=== PATIENT | female | born 1950 | race Caucasian/White ===

== ENCOUNTER 2016-08-07 15:05 | Emergency (ER) | payer OTHER, BC ==
[~2016-08-07] VITALS: Ht 157.5 cm; Wt 70.0 kg
[2016-08-07 15:07] VITALS: Ht 157.5 cm; Wt 70.0 kg
[2016-08-07 15:24] VITALS: TEMP 36.9
[2016-08-07 15:25] VITALS: O2SAT 97
[2016-08-07] MEDS ORDERED: SODIUM CHLORIDE 0.9% 1000ML 1,000 ML IV STA (15:27)
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
[2016-08-07] MEDS ORDERED: OMEP20CA59 PO (15:44)
[2016-08-07] MEDS ORDERED: LSN5 PO (15:44)
[2016-08-07] MEDS ORDERED: ATOR10TA88 PO (15:44)
[2016-08-07] MEDS ORDERED: GARC1TAB PO (15:44)
[2016-08-07] MEDS ORDERED: IBUP-103 PO (15:44)
[2016-08-07] MEDS ORDERED: FAMO20TA11 PO (15:44)
[2016-08-07] MEDS ORDERED: MULT-1027 PO (15:44)
[2016-08-07] MEDS ORDERED: OPTIRAY 320 IV PRN (15:45)
[2016-08-07 15:46] LABS: BASO % 0.2 %; BASO ABS # 0.02 K/uL (0-0.2); COMPLETE YES; EOS % 0.9 %; HEMATOCRIT 40.5 % (37-47); IG% 0.4 %; LYMPH % 24.4 %; LYMPH ABS # 2.73 K/uL (1.2-3.4); MEAN CELL VOLUME 90.4 fL (80-100); MEAN CORPUSCULAR HEMOGLOBIN 31.5 pg (25-34); MEAN CORPUSCULAR HGB CONC 34.8 g/dl (32-36); MEAN PLATELET VOLUME 10.4 fL (7.4-10.4); MONO % 7.3 %; NEUT % 66.8 %; PLATELET COUNT 185 K/uL (130-400); RED BLOOD COUNT 4.48 M/uL (4.2-5.4); WHITE BLOOD COUNT 11.17 K/uL (4.8-10.8)
[2016-08-07 16:13] LABS: ALT/SGPT 39 U/L (12-78); AST/SGOT 32 U/L (15-37); BLOOD UREA NITROGEN 17 mg/dl (7-18); BUN/CREATININE RATIO 19.1 (10-20); CALCIUM 8.7 mg/dl (8.5-10.1); CARBON DIOXIDE 28 mmol/L (21-32); CHLORIDE 107 mmol/L (98-107); CREATININE 0.91 mg/dl (0.60-1.20); GLUCOSE 103 mg/dl (70-99); POTASSIUM 3.5 mmol/L (3.5-5.1); SODIUM 142 mmol/L (136-145)
[2016-08-07 16:18] LABS: ALKALINE PHOSPHATASE 74 U/L (45-117); CKMB/CK RATIO 1.2 (0-3.0)
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
[2016-08-07 17:30] LABS: ISTAT CREATININE 0.8 mg/dl (0.6-1.3); ISTAT HEMOGLOBIN 13.6 g/dl (12.0-16.0); ISTAT IONIZED CALCIUM 1.17 mmol/l (1.12-1.32)
[2016-08-07 17:30] LABS: CKMB/CK RATIO 1.5 (0-3.0)
[2016-08-07 17:35] LABS: URINE APPEARANCE CLEAR (CLEAR); URINE BILIRUBIN NEG (NEG); URINE COLOR YELLOW; URINE NITRITE NEG (NEG); URINE SPECIFIC GRAVITY 1.022 (1.000-1.030); UROBILINOGEN NEG (NEG)
[2016-08-07 17:39] LABS: MANUAL MICROSCOPIC REQUIRED? NO; REVIEW REQ? NO
[2016-08-07] MEDS ORDERED: KETOROLAC TROMETHAMINE 30 MG/ML VIAL IV STA (18:14)
[2016-08-07 19:52] VITALS: BP 138/78; PULSE 84; O2SAT 99
== END 2016-08-07 19:52 | disposition short-term general hospital (02) ==
LOC: EDBD 15:05 → C.EDA 15:06
DX: S20.20XA Contusion of thorax, unspecified, initial encounter (principal); V49.59XA Passenger injured in collision with other motor vehicles in traffic accident, initial encounter; I10 Essential (primary) hypertension; Z82.49 Family history of ischemic heart disease and other diseases of the circulatory system

== ENCOUNTER → 2016-09-04 | Outpatient (CLI) | payer OTHER, BC ==
[~2016-09-04] MED LIST: ATOR10TA82 PO; FAMO20TA11 PO; GARC1TAB PO; IBUP-103 PO; LSN5 PO; MULT-1027 PO; OMEP20CA59 PO
== END | disposition home or self-care (01) ==
LOC: C.PAPS 11:45
PROVIDERS: ATTEND Obstetrics & Gynecology
DX: Z12.4 Encounter for screening for malignant neoplasm of cervix (principal)

== ENCOUNTER → 2016-12-01 | Outpatient (CLI) | payer OTHER, BC ==
[~2016-12-01] MED LIST changes: -ATOR10TA82 PO; +ATOR10TA88 PO
--- NOTE | 2016-12-01 15:18 | MAMMOGRAPHY REPORT ---
BILATERAL DIGITAL SCREENING MAMMOGRAM WITH CAD: 12/01/2016 CLINICAL HISTORY: Routine screening. Patient has no complaints. TECHNIQUE: Bilateral CC and MLO views were obtained. Current study was also evaluated with a Compute r Aided Detection (CAD) system. COMPARISON: Comparison is made to exams dated: 11/29/2015 mammogram, 11/27/2014 mammogram, 11/24/2013 m ammogram, 11/19/2012 mammogram, 11/18/2011 mammogram, and 11/12/2010 mammogram - [facility] enter. BREAST COMPOSITION: The tissue of both breasts is almost entirely fatty. FINDINGS: An asymmetry in the subareolar right breast appears similar on all available prior mammogr ams dating back to at least 11/02/2008, therefore likely benign. No new suspicious mass, architectur al distortion or cluster of microcalcifications is seen. IMPRESSION: ACR BI-RADS CATEGORY 1: NEGATIVE There is no mammographic evidence of malignancy. A 1 year screening mammogram is recommended. The pa tient will receive written notification of the results. Approximately 10% of breast cancers are not detected with mammography. A negative mammographic report should not delay biopsy if a clinically suggestive mass is present. Celia Cherry M.D. ay/:12/01/2016 13:45:25 Cargo Router: Yue LAKHANI(R)(M), [facility] letter sent: Normal 1/2 BI-RADS Code: ACR BI-RADS Category 1: Negative
== END | disposition home or self-care (01) ==
LOC: C.MAMM 10:56
PROVIDERS: ATTEND Obstetrics & Gynecology
DX: Z12.31 Encounter for screening mammogram for malignant neoplasm of breast (principal)

== ENCOUNTER 2017-05-21 08:42 | Emergency (ER) | payer OTHER, BC ==
[~2017-05-21] VITALS: Ht 160 cm; Wt 68.4 kg
[~2017-05-21 08:42] MED LIST changes: +ATOR10TA82 PO; -ATOR10TA88 PO
[2017-05-21 08:44] VITALS: Ht 160 cm; Wt 68.4 kg
[2017-05-21] MEDS ORDERED: ADENOSINE IV SOLN 3 MG/ML 2 ML VIAL ONE (09:07)
[2017-05-21] MEDS ORDERED: FENTANYL CITRATE INJ 50 MCG/1 ML 2 ML VIAL ONE (09:08)
[2017-05-21] MEDS ORDERED: ADENOSINE IV SOLN 3 MG/ML 2 ML VIAL IV STA ×2 (09:11)
[2017-05-21] MEDS ORDERED: FENTANYL CITRATE INJ 50 MCG/1 ML 2 ML VIAL IV ONE (09:15)
[2017-05-21 09:20] VITALS: O2SAT 100
[2017-05-21 09:33] LABS: BASO % 0.3 %; BASO ABS # 0.03 K/uL (0-0.2); EOS % 1.9 %; EOS ABS # 0.18 K/uL (0-0.5); HEMATOCRIT 44.9 % (37-47); HEMOGLOBIN 15.7 g/dL (12.0-16.0); IG# 0.02 K/uL (0.00-0.02); LYMPH % 40.5 %; LYMPH ABS # 3.88 K/uL (1.2-3.4); MEAN CELL VOLUME 92.2 fL (80-100); MEAN CORPUSCULAR HEMOGLOBIN 32.2 pg (25-34); MEAN PLATELET VOLUME 10.9 fL (7.4-10.4); MONO % 7.9 %; MONO ABS # 0.76 K/uL (0.11-0.59); NEUT % 49.2 %; NEUT ABS # 4.72 K/uL (1.4-6.5); PLATELET COUNT 235 K/uL (130-400); RED CELL DISTRIBUTION WIDTH CV 12.7 % (11.5-14.5); RED CELL DISTRIBUTION WIDTH SD 42.5 fL (36.4-46.3); WHITE BLOOD COUNT 9.59 K/uL (4.8-10.8)
[2017-05-21 09:41] LABS: PTT PATIENT 27.4 SECONDS (21.0-31.0)
--- NOTE | 2017-05-21 09:41 | EMERGENCY ROOM VISIT NOTE ---
History Report prepared by Ermelindaibleonardo: Xochitl Green Under the Supervision of: Dr. Nico Lius M.D. First contact with patient: 09:00 Chief Complaint: SYNCOPE (NEAR SYNCOPE) Stated Complaint: HEART RACING, FEEL LIKE PASSING OUT History of Present Illness The patient is a 67 year old white female with a past medical history of hypertension, hyperlipidemia who presents to the ED with a cc of persistent tachycardia beginning around 0810 this morning. Positive recent cough, near syncopal, lightheaded, chest pain. She currently rates her discomfort as a 5/ 10 in severity. The patient states that while making breakfast this morning she noticed her symptoms begin. She denies any recent change in medication. The patient denies any recent stressors. She states that she drinks approximately 1-2 alcoholic drinks per day. Source of History: patient Onset: 0810 this morning Position: other (global) Symptom Intensity: 5/10 Quality: other (tachycardia) Timing: other (persistent) Associated Symptoms: + chest pain Note: Associated Symptoms: near syncopal, lightheaded Review of Systems See HPI for pertinent positives and negatives. A total of ten systems were reviewed and were otherwise negative. Past Medical & Surgical Medical Problems: (1) HTN (hypertension) (2) Vertigo Family History Heart disease Social History Smoking Status: Never Smoker Marital Status: Housing Status: lives with family Occupation Status: employed Current/Historical Medications Scheduled Aspirin ([place] Aspirin Ec Low Dose), 1 TAB PO DAILY Atorvastatin (Lipitor), 10 MG PO DAILY Famotidine (Pepcid), 20 MG PO prn Lisinopril (Lisinopril), 5 MG PO DAILY Multiple Vitamin (Multi Vitamin), 1 TAB PO DAILY Allergies Coded Allergies: No Known Allergies (Unverified , 05/21/17) Physical Exam Vital Signs Date Time Temp Pulse Resp B/P (MAP) Pulse Ox O2 Delivery O2 Flow Rate FiO2 05/21/17 11:35 96 18 105/66 97 05/21/17 10:35 98 05/21/17 10:30 97 18 103/79 97 Room Air 05/21/17 09:30 94 20 126/101 100 Room Air 05/21/17 09:25 105 05/21/17 09:20 100 Nasal Cannula 3.0 05/21/17 09:12 99 Room Air 05/21/17 09:08 99 Room Air 05/21/17 08:59 214 05/21/17 08:44 36.5 218 22 99 Room Air Physical Exam GENERAL: Awake, alert, well-appearing, NAD HENT: Normocephalic, atraumatic. EYES: Normal conjunctiva. Sclera non-icteric. NECK: Supple. No nuchal rigidity. FROM. RESPIRATORY: CTAB, no rhonchi, wheezing, crackles CARDIAC: Tachycardic rate, regular rhythm, no MRG ABDOMEN: Soft, NTND, BS+ MSK: No chest wall TTP, no LE edema NEURO: GCS 15, CN 2-12 intact, moves all 4s on command SKIN: No rash or jaundice noted. Medical Decision & Procedures ER Provider Diagnostic Interpretation: X-ray: Per my interpretation, radiologist review. CHEST ONE VIEW PORTABLE CLINICAL HISTORY: Atypical chest pain and tachycardia COMPARISON STUDY: No previous studies for comparison. FINDINGS: The cardiac and mediastinal contours are normal. There is no evidence of focal pulmonary consolidation. There is no evidence of failure. No pleural effusions are visualized.[ IMPRESSION: No active disease in the chest. Electronically signed by: Misbah Bryan M.D. 05/21/2017 9:38 AM Dictated Date/Time: 05/21/2017 9:38 AM Laboratory Results 05/21/17 09:00 Red Blood Count 4.87, Mean Corpuscular Volume 92.2, Mean Corpuscular Hemoglobin 32.2, Mean Corpuscular Hemoglobin Concent 35.0, Mean Platelet Volume 10.9, Neutrophils (%) (Auto) 49.2, Lymphocytes (%) (Auto) 40.5, Monocytes (%) (Auto) 7.9, Eosinophils (%) (Auto) 1.9, Basophils (%) (Auto) 0.3, Neutrophils # (Auto) 4.72, Lymphocytes # (Auto) 3.88, Monocytes # (Auto) 0.76, Eosinophils # (Auto) 0.18, Basophils # (Auto) 0.03 05/21/17 09:00 Test 05/21/17 09:00 White Blood Count 9.59 K/uL (4.8-10.8) Red Blood Count 4.87 M/uL (4.2-5.4) Hemoglobin 15.7 g/dL (12.0-16.0) Hematocrit 44.9 % (37-47) Mean Corpuscular Volume 92.2 fL (80-100) Mean Corpuscular Hemoglobin 32.2 pg (25-34) Mean Corpuscular Hemoglobin Concent 35.0 g/dl (32-36) Platelet Count 235 K/uL (130-400) Mean Platelet Volume 10.9 fL (7.4-10.4) Neutrophils (%) (Auto) 49.2 % Lymphocytes (%) (Auto) 40.5 % Monocytes (%) (Auto) 7.9 % Eosinophils (%) (Auto) 1.9 % Basophils (%) (Auto) 0.3 % Neutrophils # (Auto) 4.72 K/uL (1.4-6.5) Lymphocytes # (Auto) 3.88 K/uL (1.2-3.4) Monocytes # (Auto) 0.76 K/uL (0.11-0.59) Eosinophils # (Auto) 0.18 K/uL (0-0.5) Basophils # (Auto) 0.03 K/uL (0-0.2) RDW Standard Deviation 42.5 fL (36.4-46.3) RDW Coefficient of Variation 12.7 % (11.5-14.5) Immature Granulocyte % (Auto) 0.2 % Immature Granulocyte # (Auto) 0.02 K/uL (0.00-0.02) Prothrombin Time 10.4 SECONDS (9.0-12.0) Prothromb Time International Ratio 1.0 (0.9-1.1) Activated Partial Thromboplast Time 27.4 SECONDS (21.0-31.0) Partial Thromboplastin Ratio 1.1 Anion Gap 7.0 mmol/L (3-11) Est Creatinine Clear Calc Drug Dose 54.6 ml/min Estimated GFR () 73.3 Estimated GFR (Non- 63.2 BUN/Creatinine Ratio 16.4 (10-20) Calcium Level 9.2 mg/dl (8.5-10.1) Phosphorus Level 3.1 mg/dl (2.5-4.9) Magnesium Level 2.2 mg/dl (1.8-2.4) Total Bilirubin 0.6 mg/dl (0.2-1) Direct Bilirubin 0.1 mg/dl (0-0.2) Aspartate Amino Transf (AST/SGOT) 30 U/L (15-37) Alanine Aminotransferase (ALT/SGPT) 36 U/L (12-78) Alkaline Phosphatase 80 U/L (45-117) Troponin I 0.031 ng/ml (0-0.045) Pro-B-Type Natriuretic Peptide 185 pg/ml (0-900) Total Protein 7.7 gm/dl (6.4-8.2) Albumin 4.0 gm/dl (3.4-5.0) Lipase 251 U/L (73-393) Laboratory results reviewed by me Medications Administered Medications (Trade) Dose Ordered Sig/Caitlin Route Start Time Stop Time Status Last Admin Dose Admin Adenosine (Adenosine Iv) 6 mg NOW STAT IV 05/21/17 09:11 05/21/17 09:13 DC 05/21/17 09:42 6 MG Fentanyl Citrate (Fentanyl Inj) 50 mcg NOW ONCE IV 05/21/17 09:15 05/21/17 09:16 DC 05/21/17 09:20 50 MCG Procedure Indication: SVT Written consent was obtained after the risks and benefits were explained, including but not limited to pain, thermal burn, allergic reaction, aspiration, airway obstruction, laryngospasm, infection, hypotension, and cardiorespiratory arrest. At this time, the risks of the procedure are less than the risks of NOT performing the procedure. A time out was taken and the correct patient and procedure identified. The patient was on 100% via NRB and end tidal CO2 monitoring prior to the procedure. Suction, airway equipment, medications, respiratory equipment, ACLS cart, and appropriate personnel were prepared prior to the initiation of the procedure. Sedation was achieved utilizing fentanyl. Total of 6 mg of adenosine was used which resulted in a pause and cardioversion into NSR. This resulted in successful conversion of the dysrhythmia back into sinus rhythm. See nursing notes for dosages and times. There were no complications and the patient recovered uneventfully from the procedure. ECG Indication: tachycardia Rate (beats per minute): 214 Rhythm: sinus tachycardia (likely SVT) Findings: ST depression (Lateral), ST elevation (mild in AVR), other (narrow and regular QRS complex) Change: Repeat EKG: normal sinus rhythm, 100 beats per minute, normal intervals, normal axis, trace depression in the lateral leads. ED Course 904: The patient was evaluated in room A4B. A complete history and physical exam was performed. 0920: I cardioverted the patient at this time. See procedure note for further detail. 1008: I reevaluated the patient and she is feeling much better. I discussed the test results with her and I discussed the treatment plan. She verbalized complete understanding and agreement. She is ready to go home. Medical Decision Differential diagnosis: Etiologies such as cardiac ischemia, aortic dissection, pulmonary embolism, pneumonia, pneumothorax, musculoskeletal, infections, pericarditis, myocarditis , esophageal rupture, gastrointestinal, as well as others were entertained. The patient is a 67 year old white female with a past medical history of hypertension, hyperlipidemia who presents to the ED with a cc of persistent tachycardia beginning around 0810 this morning. Patient was seen and evaluated at the bedside. Patient was complaining of some mild chest discomfort and noticed that her heart rate was high. Upon reassessment of the patient the patient was noted to be an SVT. Patient states that this began this morning after she had been up awake and walking around. Patient was given adenosine and she converted without issue. Repeat EKG did show sinus tachycardia. Patient may have had some mild trace depression in the lateral leads however this is much improved from her prior. I believe that this was likely rate related. Patient denied any chest pain, shortness of breath or other concerning signs for cardiac related chest pain. I believe that most of her chest discomfort prior was to do her rate. Patient did have a questionable run of nonsustained V. tach with an approximate 5 beats. The patient was asymptomatic. Patient was deemed suitable for outpatient follow-up and treatment after discussion with the patient and after review of her blood work which did not show an elevated troponin. Her electrolytes were normal. Patient was told to follow with her PCP and discuss any need for follow-up with a specialist like a l d rn. Patient was told to avoid things like alcohol and to make sure that she hydrates liberally. Patient was also told to avoid any supplements or stimulants. Patient was agreeable to this plan. Patient was given strict follow-up, discharge, and return precautions. All questions were answered. Patient was deemed suitable for outpatient follow-up at this time. Patient agreed with the plan of care and was safely discharged home. Medication Reconcilliation Current Medication List: was personally reviewed by me Blood Pressure Screening Patient's blood pressure: Normal blood pressure Blood pressure disposition: Did not require urgent referral Impression Primary Impression: SVT (supraventricular tachycardia) Additional Impression: Chest pain Critical Care I have personally spent greater than 35 minutes of critical care time in the direct management of this patient. This includes bedside care, interpretation of diagnostic studies, and testing, discussion with consultants, patient, and family members, and other required patient management activities. This 35 minutes is in excess of all separately billable procedures. Scribe Attestation The scribe's documentation has been prepared under my direction and personally reviewed by me in its entirety. I confirm that the note above accurately reflects all work, treatment, procedures, and medical decision making performed by me. Departure Information Dispostion Home / Self-Care Referrals Tina Nunez M.D. (PCP) Forms HOME CARE DOCUMENTATION FORM, IMPORTANT VISIT INFORMATION Patient Instructions My [facility], Treatment for Supraventricular Tachycardia SVT, Understanding Supraventricular Tachycardia SVT Additional Instructions Please return to the emergency department if you have worsening or recurrent symptoms not amenable to at-home treatment. Please call for a follow-up appointment with her primary care physician. Please take your medications as prescribed. If you have other concerns and/or complaints please feel free to also call your primary care physician's office or return the ED for further evaluation, management, and treatment. Please follow-up with your primary care physician discuss if he needed a referral to a specialist like a l d rn. Please avoid alcohol and caffeinated beverages. Please avoid any stimulants. He may continue to use [id number] type medications for her cough. Take your medications as prescribed. You have been examined and treated today on an emergency basis only. This is not a substitute for, or an effort to provide, complete comprehensive medical care. It is impossible to recognize and treat all injuries or illnesses in a single emergency department visit. It is therefore important that you follow up closely with [facility], your PCP, and/or your specialist(s). Call as soon as possible for an appointment. Thank you for your time and consideration. I look forward to speaking with you again soon. Please don't hesitate to call us if you have any questions. Problem Qualifiers Additional Impression: Chest pain Chest pain type: unspecified Qualified Codes: R07.9 - Chest pain, unspecified
[2017-05-21 09:50] LABS: CALCIUM 9.2 mg/dl (8.5-10.1); CREATININE 0.94 mg/dl (0.60-1.20); POTASSIUM 3.6 mmol/L (3.5-5.1)
[2017-05-21 09:53] LABS: PHOSPHORUS 3.1 mg/dl (2.5-4.9); TOTAL PROTEIN 7.7 gm/dl (6.4-8.2)
[2017-05-21] MEDS ORDERED: ASPI1TAB2 PO (10:08)
[2017-05-21 11:35] VITALS: BP 105/66; PULSE 96; O2SAT 97
== END 2017-05-21 11:48 | disposition home or self-care (01) ==
LOC: C.EDB 08:43 → C.EDA 11:48
DX: I47.1 Supraventricular tachycardia (principal); R07.9 Chest pain, unspecified; I10 Essential (primary) hypertension; Z79.82 Long term (current) use of aspirin

== ENCOUNTER 2020-10-05 12:01 | Observation (INO) ==
[2020-10-05] MEDS ORDERED: Heparin IV Adult Wt-Based Standard WITH Bolus Protocol IV STA (12:39)
--- NOTE | 2020-10-05 12:46 | Emergency Department Note ---
History of Present Illness General Chief complaint: Abnormal Labs/Diagnostic Testing Stated complaint: PULMONARY EMBOLISM, JUST HAD CAT SCAN Time Seen by Provider: 10/05/20 12:26 Source: patient History of Present Illness Provider complaint: Shortness of breath Onset (ago): week(s) 2 Location: chest Pain Consistency: + constant Quality: + other (Short of breath) Relieved By: + none Associated symptoms: + headaches (Very mild headache better with aspirin 81 mg) and + shortness of breath; no chest pain, no cough, no fever/chills and no nausea/vomiting This is a 70-year-old female who presents with a pulmonary embolism. The patient states that she was at [facility] for CT angiogram of her chest which showed a clot in her lung. She does advised to be admitted to the hospital but preferred to come here for admission and so she presents to the emergency department. She complains of shortness of breath for about 2 weeks. She denies any chest discomfort or pain or upper back pain. She has had no fevers, cough or cold symptoms, abdominal pain, vomiting, diarrhea, hematuria, bad headaches, or black or bloody stools. She has no history of abnormal bleeding. She did have blood work 3 days ago which showed an elevated D-dimer and a negative COVID-19 test. She does complain of pain to the right calf where she feels a lump. She has had intermittent crampy pain to both legs. She denies any history of PE or DVT in the past. She does state her mother had a DVT. The patient denies any surgery, recent immobilization or hormone replacement therapy. Home Medications Medication Instructions Recorded Confirmed Type clobetasol 0.05 % topical ointment 1 applic TOPICAL UD PRN 01/12/20 10/05/20 History multivitamin with iron 1 tab PO DAILY 01/12/20 10/05/20 History atorvastatin 10 mg PO HS 10/05/20 10/05/20 History metoprolol succinate 25 mg PO DAILY 10/05/20 10/05/20 History Allergies Allergy/AdvReac Type Severity Reaction Status Date / Time adhesive Allergy Mild Mild Unverified 10/05/20 14:20 Irritation and Redness latex Allergy Mild Mild Unverified 10/05/20 14:20 Irritation and Redness Past Med/Surg History Medical History (Updated 10/05/20 @ 19:17 by Sebastian Angelo MD) Asymptomatic menopausal state Hypertension Left knee DJD Left knee pain Meningioma Osteopenia Paroxysmal SVT (supraventricular tachycardia) Sensorineural hearing loss (SNHL) of left ear with restricted hearing of right ear Tinnitus of left ear Surgical History H/O colonoscopy 2016, negative History of tonsillectomy and adenoidectomy S/P section Status post tubal ligation Family History Mother Hypertension Diabetes Brother Diabetes Father Myocardial infarction Other Heart disease Denies family history of Ovarian cancer Breast cancer Colorectal cancer Social History Smoking Status: Never smoker Hx Alcohol Use: Yes Alcohol type: wine Hx Substance Use: No Preferred Language: Filipino Communication Ability: Effective 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 and A total of 10 systems reviewed and were otherwise negative Physical Exam Vital Signs Vital Signs - 24 hr 10/05/20 12:05 10/05/20 13:09 10/05/20 14:35 Temperature 36.3 C L Temperature Source Temporal Artery Scan Pulse Rate 77 Pulse Rate [Apical] 74 74 Pulse Rhythm Regular Pulse Rhythm [Apical] Regular Pulse Strength Normal Pulse Strength [Apical] Normal Respiratory Rate 20 20 18 Respiratory Effort / Characteristics Non-Labored Spontaneous Non-Labored Spontaneous Respiratory Depth Normal Normal Normal Respiratory Pattern Regular Regular Blood Pressure 191/78 H Blood Pressure [Right Arm] 158/81 H 143/87 H Blood Pressure Mean 115 Blood Pressure Mean [Right Arm] 106 105 Blood Pressure Position Sitting Blood Pressure Position [Right Arm] Sitting Lying Pulse Oximetry 97 97 96 Oxygen Delivery Method Room Air Room Air Room Air Sepsis Recent Fever Within 48 Hours No Sepsis New/Unexplained Change in Mental Status No Sepsis Action Taken by Nursing No Action Required Constitutional: Vital signs reviewed. Eyes: Pupils are equal round reactive to light. Conjunctiva are noninjected. ENT: Pharynx is clear without erythema or exudate. Mucous membranes are moist. Neck supple without meningeal signs. Respiratory: Clear to auscultation bilaterally. Breath sounds are equal bilaterally. Cardiovascular: Regular rate and rhythm. No rubs or gallops. GI: Soft, nondistended and nontender. Bowel sounds are present. Musculoskeletal: No peripheral edema. No lower extremity tenderness. Integumentary: No cyanosis. or jaundice. Neurological: The patient is awake and alert. No focal deficits. Psychiatric: Normal affect. Not anxious appearing. Course Administered Medications Heparin Sodium/Dextrose (Heparin Sodium/Dextrose) 25,000 units in 500 mls @ 21 mls/hr IV .[id number] [facility]; Protocol Stop: 11/04/20 12:55 Last Admin: 10/05/20 13:16 Dose: 1,050 units/hr, 21 mls/hr Documented by: [id number] Cosigned by: [id number] Discontinued Medications Heparin Sodium (Porcine) (Heparin Sod (Porcine) 1000 Unit/Ml) 1 units IV NOW ONE Stop: 10/05/20 12:57 Last Admin: 10/05/20 13:15 Dose: Not Given Documented by: [id number] Heparin Sodium/Dextrose (Heparin Iv Adult Wt-Based Standard With Bolus Protocol) 1 ea IV NOW [facility]; Protocol Stop: 10/05/20 12:40 Last Admin: 10/05/20 13:20 Dose: 1 ea Documented by: [id number] Critical Care Time Critical Care Time: Yes Total Critical Care Time: 35 I have personally spent approximately 35 minutes of critical care time in the direct management of this patient. This includes bedside care, interpretation of diagnostic studies, and testing, discussion with consultants, patient, and family members, and other required patient management activities. These minutes are in excess of all separately billable procedures. Medical Decision Making Differential Diagnosis DVT, superficial thrombophlebitis, coagulopathy, pulmonary embolism, cor pulmonale Medical Records Attestation: I reviewed the patient's medical records. I did perform a limited focused review of portions of the patient's old chart on the electronic medical record. The patient has had no recent pertinent visits to this hospital. The patient did have blood work on October 02 which showed a D- dimer of 2.2. Her hemoglobin was 15.4 and platelet count was 197. She had a CT scan of the chest today which showed bilateral pulmonary emboli and involving branches supplying the left upper lobe, lower lobe, right upper, middle and lower lobe. Home Medications Current Medication List: was personally reviewed by me Laboratory Data Attestation: I reviewed the patient's lab results. Result diagrams: 10/05/20 12:56 10/05/20 14:50 Lab Results 10/05/20 10/05/20 10/05/20 Range/Units 12:56 12:56 12:56 WBC 7.95 (4.8-10.8) K/uL RBC 4.67 (4.2-5.4) M/uL Hgb 15.4 (12.0-16.0) g/dL Hct 44.5 (37-47) % MCV 95.3 (80-100) fL MCH 33.0 (25-34) pg MCHC 34.6 (32-36) g/dL RDW Std Deviation 43.4 (36.4-46.3) fL RDW Coeff of Jose J 12.6 (11.5-14.5) % Plt Count 193 (130-400) K/uL MPV 10.9 H (7.4-10.4) fL Immature Gran % (Auto) 0.3 % Neut % (Auto) 58.1 % Lymph % (Auto) 30.9 % Fannin % (Auto) 9.6 % Eos % (Auto) 1.0 % Baso % (Auto) 0.1 % Neut # (Auto) 4.62 (1.4-6.5) K/uL Lymph # (Auto) 2.46 (1.2-3.4) K/uL Fannin # (Auto) 0.76 H (0.11-0.59) K/uL Eos # (Auto) 0.08 (0-0.5) K/uL Baso # (Auto) 0.01 (0-0.2) K/uL Immature Gran # (Auto) 0.02 (0.00-0.02) K/uL PT 10.1 (9.0-12.0) Seconds INR 1.0 (0.9-1.1) Sodium 141 (136-145) mmol/L Potassium (3.5-5.1) mmol/L Chloride 110 H (98-107) mmol/L Carbon Dioxide 28 (21-32) mmol/L Anion Gap 3.0 (3-11) BUN 19 H (7-18) mg/dl Creatinine 0.79 (0.6-1.2) mg/dl Est Cr Clr Drug Dosing 63.2 ml/min Est GFR ( Amer) 88.5 Est GFR (Non-Af Amer) 76.4 BUN/Creatinine Ratio 23.7 H (10-20) Glucose 90 (70-99) mg/dl Calcium 9.1 (8.5-10.1) mg/dl Total Bilirubin 0.7 (0.2-1) mg/dl AST (15-37) U/L ALT 30 (12-78) U/L Alkaline Phosphatase 84 (45-117) U/L Troponin I < 0.015 (0-0.045) ng/ml Total Protein 7.6 (6.4-8.2) gm/dl Albumin 3.9 (3.4-5.0) gm/dl Globulin 3.7 (2.5-4.0) gm/dl Albumin/Globulin Ratio 1.1 (0.9-2) COVID-19 Eval Order SARS-CoV-2 (PCR) (Negative) Influenza Type A (PCR) (Neg) Influenza Type B (PCR) (Neg) RSV (RT-PCR) (Neg) 10/05/20 10/05/20 10/05/20 Range/Units 13:03 13:03 14:50 WBC (4.8-10.8) K/uL RBC (4.2-5.4) M/uL Hgb (12.0-16.0) g/dL Hct (37-47) % MCV (80-100) fL MCH (25-34) pg MCHC (32-36) g/dL RDW Std Deviation (36.4-46.3) fL RDW Coeff of Jose J (11.5-14.5) % Plt Count (130-400) K/uL MPV (7.4-10.4) fL Immature Gran % (Auto) % Neut % (Auto) % Lymph % (Auto) % Fannin % (Auto) % Eos % (Auto) % Baso % (Auto) % Neut # (Auto) (1.4-6.5) K/uL Lymph # (Auto) (1.2-3.4) K/uL Fannin # (Auto) (0.11-0.59) K/uL Eos # (Auto) (0-0.5) K/uL Baso # (Auto) (0-0.2) K/uL Immature Gran # (Auto) (0.00-0.02) K/uL PT (9.0-12.0) Seconds INR (0.9-1.1) Sodium (136-145) mmol/L Potassium 3.7 (3.5-5.1) mmol/L Chloride (98-107) mmol/L Carbon Dioxide (21-32) mmol/L Anion Gap (3-11) BUN (7-18) mg/dl Creatinine (0.6-1.2) mg/dl Est Cr Clr Drug Dosing ml/min Est GFR ( Amer) Est GFR (Non-Af Amer) BUN/Creatinine Ratio (10-20) Glucose (70-99) mg/dl Calcium (8.5-10.1) mg/dl Total Bilirubin (0.2-1) mg/dl AST 23 (15-37) U/L ALT (12-78) U/L Alkaline Phosphatase (45-117) U/L Troponin I (0-0.045) ng/ml Total Protein (6.4-8.2) gm/dl Albumin (3.4-5.0) gm/dl Globulin (2.5-4.0) gm/dl Albumin/Globulin Ratio (0.9-2) COVID-19 Eval Order CovFluRsv at [facility] SARS-CoV-2 (PCR) NEGATIVE (Negative) Influenza Type A (PCR) Negative (Neg) Influenza Type B (PCR) Negative (Neg) RSV (RT-PCR) Negative (Neg) Imaging Data Radiologist's Impression: Venous Doppler Study 10/05/20 12:46 BILATERAL LOWER EXTREMITY VENOUS DOPPLER CLINICAL HISTORY: PE eval for dvt COMPARISON STUDY: No previous studies for comparison. TECHNIQUE: Sonography of the deep venous system of the bilateral lower extremities was performed. Compression and augmentation were evaluated. FINDINGS: Note is made of nonocclusive deep venous thrombus within the right peroneal vein. No additional sites of deep venous thrombus are identified within either lower extremity. IMPRESSION: Deep venous thrombus within the right peroneal vein. ACT 112: Negative or not required by law. Electronically signed by: Brodie Mendoza M.D. 10/05/2020 2:54 PM ECG Data Attestation: I personally reviewed and interpreted this ECG as follows: Indication: + SOB/dyspnea Rate (beats per minute): 67 Rhythm: + normal sinus ECG ST segments: + Nonspecific ST abnormalities ECG Findings: no PACs and no PVCs MDM Narrative I did evaluate the patient as noted above. The patient is presenting with shortness of breath for 2 weeks. She has bilateral pulmonary emboli in every lobe of the lung. I did review risks and benefits of anticoagulation with her. IV access was established. I did place an order for continuous cardiac monitoring. The monitor showed normal sinus rhythm at a rate of 70 bpm. I did order and personally review the patient's 12-lead EKG as described above. She has nonspecific findings. No acute ischemia. I did order and review the patient's blood work as noted in the electronic medical record. CBC is unremarkable. Platelet count is 193. Electrolytes are unremarkable. I did send a hypercoagulable panel which is currently pending. I did start the patient on heparin with a bolus and continuous drip. I did order a Covid screening test. I did order a Doppler ultrasound of the lower extremities. I did review the images myself as well as the radiology report as described above. She has a clot in the right peroneal vein. I did discuss case with the hospitalist and case advocate. Impression & Plan Multiple pulmonary emboli, Acute deep vein thrombosis (DVT) of right lower ext remity Discharge Plan Visit Data Chief Complaint: Abnormal Labs/Diagnostic Testing Stated Complaint: PULMONARY EMBOLISM, JUST HAD CAT SCAN ED Provider: Sebastian Angelo Discharge Problem: Multiple pulmonary emboli, Acute deep vein thrombosis (DVT) of right lower extremity Patient Disposition: Admitted As Inpatient Discharge Instructions Interventions: ED Discharge Assessment Last Done: 10/05/20 15:48
[2020-10-05] MEDS ORDERED: HEPARIN SOD (PORCINE) 1000 UNIT/ML IV ONE (12:56)
[2020-10-05] MEDS ORDERED: HEPARIN SODIUM/DEXTROSE 25,000 UNITS/500 ML BAG IV SCH (12:56)
[2020-10-05 13:10] LABS: Basophils # (auto) 0.01 K/uL (0-0.2); Basophils % (auto) 0.1 %; Eosinophils # (auto) 0.08 K/uL (0-0.5); Hematocrit (blood only) 44.5 % (37-47); Hemoglobin 15.4 g/dL (12.0-16.0); Immature Granulocytes # (auto) 0.02 K/uL (0.00-0.02); Immature Granulocytes % (auto) 0.3 %; Lymphocytes # (auto) 2.46 K/uL (1.2-3.4); Lymphocytes % (auto) 30.9 %; Mean Corpuscular Hgb Conc 34.6 g/dL (32-36); Mean Corpuscular Volume 95.3 fL (80-100); Mean Platelet Volume 10.9 fL (7.4-10.4); Monocytes # (auto) 0.76 K/uL (0.11-0.59); Monocytes % (auto) 9.6 %; Neutrophils # (auto) 4.62 K/uL (1.4-6.5); Neutrophils % (auto) 58.1 %; Platelet Count 193 K/uL (130-400); RDW Coefficient of Variation 12.6 % (11.5-14.5); RDW Standard Deviation 43.4 fL (36.4-46.3); Red Blood Count 4.67 M/uL (4.2-5.4); White Blood Count 7.95 K/uL (4.8-10.8)
[2020-10-05 13:46] LABS: Prothrombin Time 10.1 Seconds (9.0-12.0)
[2020-10-05 13:48] LABS: Alanine Aminotransferase 30 U/L (12-78); Albumin Globulin Ratio 1.1 (0.9-2); Albumin Level 3.9 gm/dl (3.4-5.0); Alkaline Phosphatase 84 U/L (45-117); BUN Creatinine Ratio 23.7 (10-20); Bilirubin,Total 0.7 mg/dl (0.2-1); Blood Urea Nitrogen 19 mg/dl (7-18); Calcium 9.1 mg/dl (8.5-10.1); Carbon Dioxide 28 mmol/L (21-32); Chloride 110 mmol/L (98-107); Creatinine Clr Calc Pharmacy 63.2 ml/min; Est GFR (African American) 88.5; Est GFR (Non-African American) 76.4; Globulin 3.7 gm/dl (2.5-4.0); Glucose 90 mg/dl (70-99); Sodium 141 mmol/L (136-145); Total Protein 7.6 gm/dl (6.4-8.2); Troponin I < 0.015 ng/ml (0-0.045)
[2020-10-05 13:57] LABS: Influenza A virus by PCR Negative (Neg); Influenza B virus by PCR Negative (Neg); RSV by PCR Negative (Neg); SARS CoV2 RNA(COVID-19) InHosp NEGATIVE (Negative)
--- NOTE | 2020-10-05 14:55 | Ultrasound Report ---
BILATERAL LOWER EXTREMITY VENOUS DOPPLER CLINICAL HISTORY: PE eval for dvt COMPARISON STUDY: No previous studies for comparison. TECHNIQUE: Sonography of the deep venous system of the bilateral lower extremities was performed. Co mpression and augmentation were evaluated. FINDINGS: Note is made of nonocclusive deep venous thrombus within the right peroneal vein. No additi onal sites of deep venous thrombus are identified within either lower extremity. IMPRESSION: Deep venous thrombus within the right peroneal vein. ACT 112: Negative or not required by law. Electronically signed by: Brodie Mendoza M.D. 10/05/2020 2:54 PM
[2020-10-05 15:12] LABS: Potassium 3.7 mmol/L (3.5-5.1)
--- NOTE | 2020-10-05 15:18 | History & Physical Report ---
Date of Service October 05, 2020 Assessment & Plan (1) Bilateral pulmonary embolism: (2) Acute deep vein thrombosis (DVT) of right peroneal vein: This is a 70-year-old female with PMH of SVT, hypertension, meningioma, hyperlipidemia and other medical problems as below who presents after being f ound to have bilateral PEs and right lower extremity DVT. Dyspnea on exertion and heart palpitations for the past 2 weeks Vital signs stable, saturating at 98% on room air CT PE protocol done in outpatient setting revealing bilateral pulmonary emboli Venous doppler showing deep venous thrombus within the right peroneal vein Seemingly unprovoked Hypercoagulability work-up in process Currently on IV heparin, interested in transitioning to DOAC Case mgmt consulted TTE to evaluate for R heart strain Monitor on telemetry (3) Hypertension: Continue home dose Toprol (4) Paroxysmal SVT (supraventricular tachycardia): History of 1 episode of SVT in the past. Normal sinus rhythm now. Continue to monitor on telemetry (5) Meningioma: History of meningioma. Undergoes surveillance MRIs every 5 years, due next year per patient DVT Ppx: IV heparin Code status: FULL PCP: Rhianna Howard PA-C Dispo: Admitted to PCU. Plan to return home once medically stable. Patient seen in collaboration with Dr. Ramos. Please see addendum. History of Present Illness Chief Complaint: Sent from PCP with PE Primary Care Provider: Rhianna Howard PA-C This is a 70-year-old female with PMH of SVT, hypertension, meningioma, hyperlipidemia and other medical problems as below who presents after being found to have bilateral PEs in outpatient setting. Seen by Rhianna Howard PA-C on October 02 for dyspnea on exertion while exercising. Also endorses associated heart palpitations. At baseline she is regular walker without difficulty. Symptoms improved with rest. Vital signs normal per home readings. Denies smoking history. Denies recent infection. Did receive 2 doses series of Covid vaccine approximately [address] PE protocol done in outpatient setting earlier today showed bilateral pulmonary emboli. Denies personal history of DVT/PE but mom with history of DVT. No known clotting disorder. Has Zio patch monitor on per PCP due to palpitations in setting of PE. Denies any chest pain, visual changes, lightheadedness, fever, chills, nasal congestion, nausea, vomiting, abdominal pain, dysuria, diarrhea constipation. Allergies Allergy/AdvReac Type Severity Reaction Status Date / Time adhesive Allergy Mild Mild Unverified 10/05/20 14:20 Irritation and Redness latex Allergy Mild Mild Unverified 10/05/20 14:20 Irritation and Redness Home Medications Medication Instructions Recorded Confirmed Type clobetasol 0.05 % topical ointment 1 applic TOPICAL UD PRN 01/12/20 10/05/20 History multivitamin with iron 1 tab PO DAILY 01/12/20 10/05/20 History atorvastatin 10 mg PO HS 10/05/20 10/05/20 History metoprolol succinate 25 mg PO DAILY 10/05/20 10/05/20 History Past Med/Surg History Medical History (Updated 10/05/20 @ 19:17 by Sebastian Angelo MD) Asymptomatic menopausal state Hypertension Left knee DJD Left knee pain Meningioma Osteopenia Paroxysmal SVT (supraventricular tachycardia) Sensorineural hearing loss (SNHL) of left ear with restricted hearing of right ear Tinnitus of left ear Surgical History H/O colonoscopy 03/2007, 2016, negative History of tonsillectomy and adenoidectomy S/P section Status post tubal ligation Family History Mother Hypertension Diabetes Brother Diabetes Father Myocardial infarction Other Heart disease Denies family history of Ovarian cancer Breast cancer Colorectal cancer Social History Smoking Status: Never smoker Hx Alcohol Use: Yes Alcohol type: wine Hx Substance Use: No Preferred Language: Barbadian Communication Ability: Effective Crew Leader/Control 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 Physical Exam Physical Exam: General Appearance: WD/WN, vitals as above, NAD, sitting up in bed, pleasant, conversing easily Head: normocephalic, atraumatic Eyes: normal inspection, PERRL, conjunctivae normal, anicteric sclerae ENT: external ear and nose normal, oropharynx normal Neck: normal visual inspection, trachea midline, no thyromegaly Respiratory: normal respiratory effort, lungs clear to auscultation, no wheeze, rales, rhonchi. No accessory muscle use Cardiovascular: regular rate, rhythm, no murmur, normal peripheral pulses, no BLE edema. Vessels: no JVD Chest: Zio patch monitor on left chest wall Abdomen/GI: normal bowel sounds, soft, nontender, no hepatosplenomegaly Extremities/Musculoskeletal: no cyanosis or clubbing, extremities motor strength 5/5 Neurologic: PERRL, EOMI, accommodation nl, no face palsy, no dysarthria, CN's II-XI intact bilaterally and moves all extremities Psychiatric: A+Ox3, euthymic affect Skin: no rashes, normal color, warm/dry Results & Data Results & Data ([facility]) Vital Signs (Past 12 Hours) Vital Signs Temp Pulse Pulse Resp BP BP Pulse Ox 10/05/20 14:35 74 18 143/87 H 96 10/05/20 13:09 74 20 158/81 H 97 10/05/20 12:05 36.3 C L 77 20 191/78 H 97 Laboratory Results Short CBC 10/05/20 Range/Units 12:56 WBC 7.95 (4.8-10.8) K/uL Hgb 15.4 (12.0-16.0) g/dL Hct 44.5 (37-47) % Plt Count 193 (130-400) K/uL BMP 10/05/20 10/05/20 12:56 14:50 Sodium 141 Potassium 3.7 Chloride 110 H Carbon Dioxide 28 BUN 19 H Creatinine 0.79 Glucose 90 Calcium 9.1 Cardiac Enzymes 10/05/20 Range/Units 12:56 Troponin I < 0.015 (0-0.045) ng/ml Liver Function 10/05/20 Range/Units 12:56 Total Bilirubin 0.7 (0.2-1) mg/dl AST (15-37) U/L ALT 30 (12-78) U/L Alkaline Phosphatase 84 (45-117) U/L Albumin 3.9 (3.4-5.0) gm/dl Diagnostic Findings Venous Doppler Study 10/05/20 12:46 BILATERAL LOWER EXTREMITY VENOUS DOPPLER CLINICAL HISTORY: PE eval for dvt COMPARISON STUDY: No previous studies for comparison. TECHNIQUE: Sonography of the deep venous system of the bilateral lower extremities was performed. Compression and augmentation were evaluated. FINDINGS: Note is made of nonocclusive deep venous thrombus within the right peroneal vein. No additional sites of deep venous thrombus are identified within either lower extremity. IMPRESSION: Deep venous thrombus within the right peroneal vein. ACT 112: Negative or not required by law. Electronically signed by: Brodie Mendoza M.D. 10/05/2020 2:54 PM Code Status & VTE Plan VTE Prophylaxis Plan VTE Prophylaxis will be ordered: Yes Supervising Physician Co-Signing Physician Notes Care coordinated with Kera Arevalo PA-C. Agree with above note. Patient seen and examined. Please refer to her notes for full details. Vital signs reviewed. Physical exam: General exam: Alert and oriented. Not in acute distress. CVS: S1 and S2 heard, regular rate and rhythm, no murmurs. RS: Clear to auscultation, no wheezing or crackles. ABD: Soft, bowel sounds present, nontender, no distention. 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 EXT: No edema, no erythema. Labs: Reviewed. Assessment and plan: 70F presented to pcp with sob on exertion and palpitations for last two weeks. Zio patch placed and CT chest showed b/l PE. Denies chest pain, No leg pain. No other complaints. Currently resting comfortably and hemodynamically stable. B/L PE DVT Rt lower extremity on iv heparin patient likes o be on [employer] social service consult monitor in tele hypercoagulable workup ordered in er Mother had an episode of DVT followup with pcp Hx of PSVT on metoprolol Other diagnosis and plan of care as per Kera Arevalo PA-C. Dionisio abraham MD.
--- NOTE | 2020-10-05 15:41 | Electrocardiogram Report ---
Test Reason : Blood Pressure : / mmHG Vent. Rate : 067 BPM Atrial Rate : 067 BPM P-R Int : 144 ms QRS Dur : 070 ms QT Int : 390 ms P-R-T Axes : 058 -26 024 degrees QTc Int : 412 ms Poor data quality, interpretation may be adversely affected Normal sinus rhythm Minor Nonspecific ST abnormality Anterolateral leads Abnormal ECG When compared with ECG of 21-MAY-2017 09:28, Vent. rate has decreased BY 33 BPM Otherwise no significant change Confirmed by Brooks Shirley ([id number] on 10/05/2020 3:40:48 PM Referred By: SELF Confirmed By:Brooks Shirley
[2020-10-05] MEDS ORDERED: ACETAMINOPHEN 325 MG TAB PO PRN (16:54)
[2020-10-05] MEDS ORDERED: ONDANSETRON INJ 2 MG/ML 2 ML VIAL IV PRN (16:54)
[2020-10-05] MEDS ORDERED: POLYETHYLENE (MIRALAX) 17 GM PACK PO PRN (16:54)
[2020-10-05 20:15] LABS: Partial Thromboplastin Ratio > 5.3
[2020-10-05 20:46] LABS: Partial Thromboplastin Time > 139.0 Seconds (21.0-31.0)
[2020-10-05] MEDS ORDERED: ATORVASTATIN 10 MG TAB PO SCH (21:00)
[2020-10-05 23:06] LABS: Partial Thromboplastin Ratio 1.9
[2020-10-05 23:17] LABS: Partial Thromboplastin Time 50.7 Seconds (21.0-31.0)
[2020-10-06 05:35] LABS: Hematocrit (blood only) 43.2 % (37-47); Hemoglobin 15.1 g/dL (12.0-16.0); Mean Corpuscular Hemoglobin 33.9 pg (25-34); Mean Corpuscular Volume 96.9 fL (80-100); Mean Platelet Volume 10.5 fL (7.4-10.4); Platelet Count 204 K/uL (130-400); RDW Coefficient of Variation 12.6 % (11.5-14.5); Red Blood Count 4.46 M/uL (4.2-5.4); White Blood Count 7.65 K/uL (4.8-10.8)
[2020-10-06 05:56] LABS: Partial Thromboplastin Ratio 1.9
[2020-10-06 06:03] LABS: Partial Thromboplastin Time 50.4 Seconds (21.0-31.0)
[2020-10-06 06:04] LABS: BUN Creatinine Ratio 20.9 (10-20); Creatinine Clr Calc Pharmacy 73.2 ml/min; Est GFR (African American) 87.2; Est GFR (Non-African American) 75.2; Potassium 3.6 mmol/L (3.5-5.1)
[2020-10-06] MEDS ORDERED: METOPROLOL SUCC 25MG EXT REL TAB PO SCH (09:00)
[2020-10-06] MEDS ORDERED: CEROVITE ADV FORMULA TAB PO SCH (09:00)
[2020-10-06] MEDS ORDERED: METOPROLOL TARTRATE 25 MG TAB PO SCH (09:00)
[2020-10-06] MEDS ORDERED: APIXABAN 5 MG TABLET PO SCH (11:00)
--- NOTE | 2020-10-06 13:09 | Hospitalist Progress Note ---
Date of Service October 06, 2020 Assessment & Plan (1) Bilateral pulmonary embolism: (2) Acute deep vein thrombosis (DVT) of right peroneal vein: Patient is a 70 yr female with H/O SVT, hypertension, meningioma, hyperlipidemia and other medical problems as below who presents after being found to have bilateral PEs and right lower extremity DVT. Acute bilateral pulmonary embolism Acute right lower extremity DVT Venous Doppler:Deep venous thrombus within the right peroneal vein. ECHO:pending Hypercoagulable work-up pending Saturating well on room air IV heparin transition to apixaban as per patient's request Continue apixaban (3) Hypertension: Continue Metoprolol BP Stable (4) Paroxysmal SVT (supraventricular tachycardia): H/O PSVT Continue metoprolol (5) Meningioma: H/O Meningioma Follow up as outpatient DVT Px: Apixaban Code status: FULL CODE Disposition: Plan to discharge home Admission and Anticipated Discharge Date Admission Date: October 05, 2020 Subjective Patient is seen and examined at bedside State shaving minimal Dyspnea on exertion Currently offers no complaints Denies chest pain, dyspnea, dizziness, nausea, abd pain, bleeding issues On IV heparin Review of Systems Review of Systems: All systems reviewed & are unremarkable except as noted in HPI & below Physical Exam Physical Exam: Physical Exam: Vitals signs as noted above General Appearance:Moderately built and nourished, no apparent distress Head: normocephalic, Atraumatic Eyes: normal inspection, EOMI Neck: supple, Trachea midline Respiratory/Chest: Normal breath sounds, CTA Cardiovascular: S1, S2, No murmur Abdomen/GI:Soft, Non tender, Bowel sounds present Extremities/Musculoskeletal:normal inspection, no edema Neurologic/Psych:AAOX3, grossly no focal neurological deficits Skin: normal color, warm Results & Data Results & Data ([facility]) Vital Signs (Past 12 Hours) Vital Signs Temp Pulse Pulse Resp BP Pulse Ox 10/06/20 12:29 36.7 C 72 18 119/80 97 10/06/20 10:54 81 10/06/20 07:52 36.7 C 74 18 127/85 95 10/06/20 03:31 36.5 C 67 19 122/80 96 Laboratory Results Short CBC 10/06/20 Range/Units 05:17 WBC 7.65 (4.8-10.8) K/uL Hgb 15.1 (12.0-16.0) g/dL Hct 43.2 (37-47) % Plt Count 204 (130-400) K/uL BMP 10/05/20 10/06/20 14:50 05:17 Sodium 141 Potassium 3.7 3.6 Chloride 110 H Carbon Dioxide 31 BUN 17 Creatinine 0.80 Glucose 94 Calcium 9.0 Liver Function 10/05/20 Range/Units 14:50 AST 23 (15-37) U/L
--- NOTE | 2020-10-06 15:05 | XCELERA ---
[id number]
--- NOTE | 2020-10-06 15:33 | Electrocardiogram Report ---
Test Reason : Blood Pressure : / mmHG Vent. Rate : 066 BPM Atrial Rate : 066 BPM P-R Int : 140 ms QRS Dur : 076 ms QT Int : 432 ms P-R-T Axes : 059 -15 018 degrees QTc Int : 452 ms Normal sinus rhythm Minimal voltage criteria for LVH, may be normal variant Nonspecific ST abnormality Abnormal ECG When compared with ECG of 05-OCT-2020 12:59, No significant change was found Confirmed by Joshua Duggan ([id number]) on 10/06/2020 3:33:29 PM Referred By: Rhianna Howard Confirmed By:Joshua Duggan
--- NOTE | 2020-10-06 15:41 | Discharge Summary ---
Date of Service October 06, 2020 Admission HPI Per Admitting Provider This is a 70-year-old female with PMH of SVT, hypertension, meningioma, hyperlipidemia and other medical problems as below who presents after being found to have bilateral PEs in outpatient setting. Seen by Rhianna abernathy PA-C on October 02 for dyspnea on exertion while exercising. Also endorses associated heart palpitations. At baseline she is regular walker without difficulty. Symptoms improved with rest. Vital signs normal per home readings. Denies smoking history. Denies recent infection. Did receive 2 doses series of Covid vaccine approximately [address] PE protocol done in outpatient setting earlier today showed bilateral pulmonary emboli. Denies personal history of DVT/PE but mom with history of DVT. No known clotting disorder. Has Zio patch monitor on per PCP due to palpitations in setting of PE. Denies any chest pain, visual changes, lightheadedness, fever, chills, nasal congestion, nausea, vomiting, abdominal pain, dysuria, diarrhea constipation. Admission Exam Per Admitting Provider Physical Exam Physical Exam: General Appearance: WD/WN, vitals as above, NAD, sitting up in bed, pleasant, conversing easily Head: normocephalic, atraumatic Eyes: normal inspection, PERRL, conjunctivae normal, anicteric sclerae ENT: external ear and nose normal, oropharynx normal Neck: normal visual inspection, trachea midline, no thyromegaly Respiratory: normal respiratory effort, lungs clear to auscultation, no wheeze, rales, rhonchi. No accessory muscle use Cardiovascular: regular rate, rhythm, no murmur, normal peripheral pulses, no BLE edema. Vessels: no JVD Chest: Zio patch monitor on left chest wall Abdomen/GI: normal bowel sounds, soft, nontender, no hepatosplenomegaly Extremities/Musculoskeletal: no cyanosis or clubbing, extremities motor strength 5/5 Neurologic: PERRL, EOMI, accommodation nl, no face palsy, no dysarthria, CN's II-XI intact bilaterally and moves all extremities Psychiatric: A+Ox3, euthymic affect Skin: no rashes, normal color, warm/dry Principal Diagnosis Acute bilateral pulmonary embolism Acute right lower extremity deep vein thrombosis Discharge Data Allergies Allergy/AdvReac Type Severity Reaction Status Date / Time adhesive Allergy Mild Mild Unverified 10/05/20 14:20 Irritation and Redness latex Allergy Mild Mild Unverified 10/05/20 14:20 Irritation and Redness Consultations 10/05/20 14:53 ED Decision to Admit Stat Procedures Performed Venous Doppler:Deep venous thrombus within the right peroneal vein. ECHO: Left ventricle systolic function is normal. No regional wall motion abnormalities noted. There is borderline concentric left ventricular hypertrophy. Ejection fraction 60 to 65%. There is mild tricuspid regurgitation. Right ventricular systolic pressure is normal. No prior study for comparison. Ordered Studies 10/05/20 12:46 US venous doppler LE Stat Hospital Course (1) Bilateral pulmonary embolism: (2) Acute deep vein thrombosis (DVT) of right peroneal vein: Patient is a 70 yr female with H/O SVT, hypertension, meningioma, hyperlipidemia and other medical problems as below who presents after being found to have bilateral PEs and right lower extremity DVT. Acute bilateral pulmonary embolism Acute right lower extremity DVT Venous Doppler:Deep venous thrombus within the right peroneal vein. ECHO: Left ventricle systolic function is normal. No regional wall motion abnormality noted. There is borderline concentric LVH. EF 60 to 65%. Mild tricuspid regurgitation. Right ventricular systolic pressure is normal. Hypercoagulable work-up pending Saturating well on room air IV heparin transition to apixaban as per patient's peference Continue apixaban (3) Hypertension: Continue Metoprolol BP Stable (4) Paroxysmal SVT (supraventricular tachycardia): H/O PSVT Continue metoprolol (5) Meningioma: H/O Meningioma Follow up as outpatient Discussed with patient, the possibility of intracranial bleed while on anticoagulation Given PE, DVT--risks versus benefits assessed, patient prefers to proceed with anticoagulation Advised to consider transitioning from Eliquis to Coumadin Advised to follow-up with PCP for repeat MRI brain after initiation of ant icoagulation. DVT Px: Apixaban Code status: FULL CODE Disposition: Plan to discharge home Total Time Total Time Spent Total Time Spent (In Minutes): 38 minutes Total Time Includes: Examination of the Patient, Discharge Planning, Medication Reconciliation, Communication With Other Providers and Other Discharge Plan Discharge Items Patient Disposition: Home - Self-Care Reason For Visit: ACUTE BILATERAL PEs, DVT Discharge Diagnosis: Acute bilateral pulmonary embolism Acute right lower extremity deep vein thrombosis Activity: Per Instructions section Exercise/Sports: Wait until after follow-up appointment Non-emergency contact: Primary Care Provider Call non-emergency contact if: you have any medication questions, your symptoms worsen, your pain is concerning for you and you have a fever Follow-up/Referrals: Rhianna Howard PA-C [Primary Care Provider] - Diet: Heart Healthy Addtl Attending Provider Instructions: Follow-up with your primary care physician Rhianna Howard PA-C in 1 week as advised Start taking Apixaban (Eliquis) 10mg twice daily for 1 week, then start taking 5 mg twice daily. Duration of anticoagulation to be determined by your primary care physician. Your blood work (hypercoagulable work-up) to determine the cause for your clotting, is pending at the time of discharge. Follow-up with your physician for results. Seek immediate medical attention if your symptoms reoccur or worsen Please take all medications as instructed on discharge list below. Please call if you have any questions or problems. You can reach a [facility] hospitalist on duty at [facility] 24 hours a day by calling [phone] Pending Studies at Discharge: Yes Studies:: Hypercoagulable work-up Stand-Alone Forms: My [facility], Smoking Cessation Medications and DC Order Prescriptions: New Eliquis 5 mg Tablet 5 mg PO UD Qty: 74 RF: 1 Continued multivitamin with iron [Daily Multiple Vitamins/Iron] Tablet 1 tab PO DAILY RF: 0 clobetasol 0.05 % ointment 1 applic topical UD PRN (Reason: Unknown) RF: 0 atorvastatin 10 mg tablet 10 mg PO HS RF: 0 metoprolol succinate 25 mg tablet extended release 24 hr 25 mg PO DAILY RF: 0 Discharge Orders: Discharge Order (Routine); Ordered 10/06/20 Ordered By: Charli Rios Admission Data Admit Date/Time: 10/05/20 15:05 Attending Provider: Charli Rios Admit Provider: Dionisio Ramos Primary Care Provider: Rhianna Howard Other Providers: Dionisio Ramos Other Interventions: Discharge Summary Assessment (RN) Last Done: 10/06/20 15:50
[2020-10-06] MEDS ORDERED: WARFARIN SOD 5 MG TAB PO SCH (16:00)
--- NOTE | 2020-10-06 16:38 | Communication Note ---
Date of Service: October 06, 2020 By CMS guidelines, a determination that the admission or continued stay is not medically necessary has been made by a member of the Utilization Review committ ee and a physician for this hospital stay. Therefore, a Code 44 will be completed and the inpatient admission will be changed to outpatient. Alejandra Araujo DO UR Committee Physician Member
[2020-10-10 00:31] LABS: B2 Glycoprotein IgG <9 SGU (<=20); B2 Glycoprotein IgM 10 SMU (<=20); Protein S Functional(Activity) 94 % (60-140)
[2020-10-10 20:44] LABS: Factor 5 Mutation NEGATIVE
[2020-10-11 05:01] LABS: Anti Cardiolipin Ab IgG <14 GPL; Anti Cardiolipin Ab IgM 24 MPL; Anti-Thrombin III Activity 137 % normal (80-135); PTT LA Screen 37 sec (<=40)
== END 2020-10-06 16:12 | disposition home or self-care (01) ==
LOC: ED 12:01 → 2S 15:05 → INTOOBSV 15:05 → SUATTDRO 15:05 → 2S 15:48

== ENCOUNTER 2022-04-29 15:40 | Observation (INO) ==
[2022-04-29] MEDS ORDERED: ADENOSINE IV SOLN 3 MG/ML 2 ML VIAL IV ONE ×2 (15:53→15:54)
[2022-04-29] MEDS ORDERED: SODIUM CHLORIDE 0.9% 500 ML IV STA (16:03)
--- NOTE | 2022-04-29 16:06 | Emergency Department Note ---
History of Present Illness General Chief complaint: Tachycardia Stated complaint: SVT POSSIBLY, HIGH HEART RATE Time Seen by Provider: 04/29/22 15:55 Source: patient Mode of arrival: ambulatory Limitations: no limitations History of Present Illness This patient is a 72-year-old female who was brought in from triage with a rapid heart rate. She does have a history of SVT. She said that that started about 30 minutes prior to arrival. no significant chest pain or shortness of breath she felt little lightheaded earlier but none now. She said it felt like she was more full in her neck than typically when she has had SVT before. no recent illness. No fever or chills. She has a history of this before. No recent illness or fall or trauma. No fever Home Medications Medication Instructions Recorded Confirmed Type atorvastatin 10 mg tablet 10 mg PO HS 10/05/20 04/29/22 History metoprolol succinate 25 mg 12.5 mg PO DAILY 01/20/22 04/29/22 History tablet,extended release 24 hr apixaban 2.5 mg tablet (Eliquis) 2.5 mg PO BID 04/29/22 04/29/22 History famotidine 20 mg tablet (Pepcid) 20 mg PO BID 04/29/22 04/29/22 History multivitamin 1 tab PO DAILY 04/29/22 04/29/22 History Allergies Allergy/AdvReac Type Severity Reaction Status Date / Time adhesive Allergy Mild Mild Unverified 04/29/22 16:02 Irritation and Redness latex Allergy Mild Mild Unverified 04/29/22 16:02 Irritation and Redness Past Med/Surg History Medical History Acute meniscal injury of left knee Asymptomatic menopausal state Dyslipidemia Hypertension Left knee pain Meningioma Multiple pulmonary emboli 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 hand Osteopenia Paroxysmal SVT (supraventricular tachycardia) Right rotator cuff tendonitis Sensorineural hearing loss (SNHL) of left ear with restricted hearing of right ear Tinnitus of left ear Tricompartment osteoarthritis of left knee Surgical History H/O colonoscopy 03/2007, 2016, negative History of tonsillectomy and adenoidectomy S/P section Status post tubal ligation Family History Mother Hypertension Diabetes Brother Diabetes Father Myocardial infarction Sister Coronary heart disease Myocardial infarction Other Heart disease Denies family history of Ovarian cancer Breast cancer Colorectal cancer Social History Smoking Status: Never smoker Hx Alcohol Use: Yes Alcohol type: wine Hx Substance Use: No Preferred Language: Lebanese Communication Ability: Effective Travel Assistant Required: No Beliefs That Will Affect Care: None marital status: Current Living Situation: Spouse Feels Safe at Home: Yes Assistive Devices: None Review of Systems A total of 10 systems reviewed and were otherwise negative Physical Exam Vital Signs Vital Signs - 24 hr 04/29/22 15:40 04/29/22 15:45 04/29/22 16:03 Temperature 36.1 C L Temperature Source Temporal Artery Scan Pulse Rate 207 H Pulse Rate [Left Finger] 97 H Pulse Rate from SpO2 Sensor Respiratory Rate 20 18 Respiratory Effort / Characteristics Non-Labored Spontaneous Non-Labored Respiratory Depth Normal Normal Blood Pressure Blood Pressure [Left Arm] 134/96 Blood Pressure Mean Blood Pressure Mean [Left Arm] 108 Pulse Oximetry 98 97 Oxygen Delivery Method Room Air Room Air Room Air Sepsis Recent Fever Within 48 Hours No Sepsis New/Unexplained Change in Mental Status No Sepsis Action Taken by Nursing No Action Required 04/29/22 16:08 04/29/22 16:41 04/29/22 17:30 Temperature Temperature Source Pulse Rate Pulse Rate [Left Finger] 92 H 96 H 84 Pulse Rate from SpO2 Sensor Respiratory Rate 22 20 14 Respiratory Effort / Characteristics Non-Labored Non-Labored Respiratory Depth Normal Normal Blood Pressure Blood Pressure [Left Arm] 156/95 H 116/79 125/83 Blood Pressure Mean Blood Pressure Mean [Left Arm] 115 91 97 Pulse Oximetry 97 97 97 Oxygen Delivery Method Room Air Room Air Room Air Sepsis Recent Fever Within 48 Hours Sepsis New/Unexplained Change in Mental Status Sepsis Action Taken by Nursing 04/29/22 16:25 04/29/22 16:30 04/29/22 16:30 Temperature Temperature Source Pulse Rate 94 H Pulse Rate [Left Finger] Pulse Rate from SpO2 Sensor 95 H Respiratory Rate 21 Respiratory Effort / Characteristics Respiratory Depth Blood Pressure 125/87 128/78 Blood Pressure [Left Arm] Blood Pressure Mean 99 94 Blood Pressure Mean [Left Arm] Pulse Oximetry 97 Oxygen Delivery Method Sepsis Recent Fever Within 48 Hours Sepsis New/Unexplained Change in Mental Status Sepsis Action Taken by Nursing 04/29/22 16:35 04/29/22 16:35 04/29/22 16:40 Temperature Temperature Source Pulse Rate 93 H Pulse Rate [Left Finger] Pulse Rate from SpO2 Sensor 91 H Respiratory Rate 21 Respiratory Effort / Characteristics Respiratory Depth Blood Pressure 116/79 105/78 Blood Pressure [Left Arm] Blood Pressure Mean 91 87 Blood Pressure Mean [Left Arm] Pulse Oximetry 98 Oxygen Delivery Method Sepsis Recent Fever Within 48 Hours Sepsis New/Unexplained Change in Mental Status Sepsis Action Taken by Nursing 04/29/22 16:40 04/29/22 16:45 04/29/22 16:45 Temperature Temperature Source Pulse Rate 96 H 96 H Pulse Rate [Left Finger] Pulse Rate from SpO2 Sensor 97 H 95 H Respiratory Rate 24 19 Respiratory Effort / Characteristics Respiratory Depth Blood Pressure 103/64 Blood Pressure [Left Arm] Blood Pressure Mean 77 Blood Pressure Mean [Left Arm] Pulse Oximetry 96 93 Oxygen Delivery Method Sepsis Recent Fever Within 48 Hours Sepsis New/Unexplained Change in Mental Status Sepsis Action Taken by Nursing 04/29/22 16:50 04/29/22 16:51 04/29/22 16:51 Temperature Temperature Source Pulse Rate 94 H 95 H Pulse Rate [Left Finger] Pulse Rate from SpO2 Sensor 95 H 95 H Respiratory Rate 18 23 Respiratory Effort / Characteristics Respiratory Depth Blood Pressure 169/103 H Blood Pressure [Left Arm] Blood Pressure Mean 125 Blood Pressure Mean [Left Arm] Pulse Oximetry 99 99 Oxygen Delivery Method Sepsis Recent Fever Within 48 Hours Sepsis New/Unexplained Change in Mental Status Sepsis Action Taken by Nursing 04/29/22 16:58 04/29/22 16:58 04/29/22 17:00 Temperature Temperature Source Pulse Rate 94 H Pulse Rate [Left Finger] Pulse Rate from SpO2 Sensor 96 H Respiratory Rate 18 Respiratory Effort / Characteristics Respiratory Depth Blood Pressure 119/94 133/79 Blood Pressure [Left Arm] Blood Pressure Mean 102 97 Blood Pressure Mean [Left Arm] Pulse Oximetry 99 Oxygen Delivery Method Sepsis Recent Fever Within 48 Hours Sepsis New/Unexplained Change in Mental Status Sepsis Action Taken by Nursing 04/29/22 17:00 04/29/22 17:10 04/29/22 17:20 Temperature Temperature Source Pulse Rate 93 H 90 92 H Pulse Rate [Left Finger] Pulse Rate from SpO2 Sensor 92 H 89 91 H Respiratory Rate 17 19 25 H Respiratory Effort / Characteristics Respiratory Depth Blood Pressure Blood Pressure [Left Arm] Blood Pressure Mean Blood Pressure Mean [Left Arm] Pulse Oximetry 99 97 97 Oxygen Delivery Method Sepsis Recent Fever Within 48 Hours Sepsis New/Unexplained Change in Mental Status Sepsis Action Taken by Nursing 04/29/22 17:30 04/29/22 17:30 04/29/22 17:40 Temperature Temperature Source Pulse Rate 84 84 Pulse Rate [Left Finger] Pulse Rate from SpO2 Sensor 84 Respiratory Rate 15 20 Respiratory Effort / Characteristics Respiratory Depth Blood Pressure 125/83 Blood Pressure [Left Arm] Blood Pressure Mean 97 Blood Pressure Mean [Left Arm] Pulse Oximetry 98 Oxygen Delivery Method Sepsis Recent Fever Within 48 Hours Sepsis New/Unexplained Change in Mental Status Sepsis Action Taken by Nursing 04/29/22 17:48 04/29/22 17:48 04/29/22 17:50 Temperature Temperature Source Pulse Rate 84 86 Pulse Rate [Left Finger] Pulse Rate from SpO2 Sensor 86 88 Respiratory Rate 20 19 Respiratory Effort / Characteristics Respiratory Depth Blood Pressure 130/85 Blood Pressure [Left Arm] Blood Pressure Mean 100 Blood Pressure Mean [Left Arm] Pulse Oximetry 98 98 Oxygen Delivery Method Sepsis Recent Fever Within 48 Hours Sepsis New/Unexplained Change in Mental Status Sepsis Action Taken by Nursing 04/29/22 18:00 04/29/22 18:00 04/29/22 18:10 Temperature Temperature Source Pulse Rate 80 80 Pulse Rate [Left Finger] Pulse Rate from SpO2 Sensor 80 81 Respiratory Rate 21 18 Respiratory Effort / Characteristics Respiratory Depth Blood Pressure 129/67 Blood Pressure [Left Arm] Blood Pressure Mean 87 Blood Pressure Mean [Left Arm] Pulse Oximetry 99 99 Oxygen Delivery Method Sepsis Recent Fever Within 48 Hours Sepsis New/Unexplained Change in Mental Status Sepsis Action Taken by Nursing 04/29/22 18:20 04/29/22 18:30 04/29/22 18:40 Temperature Temperature Source Pulse Rate 75 76 75 Pulse Rate [Left Finger] Pulse Rate from SpO2 Sensor 76 77 75 Respiratory Rate 24 21 23 Respiratory Effort / Characteristics Respiratory Depth Blood Pressure Blood Pressure [Left Arm] Blood Pressure Mean Blood Pressure Mean [Left Arm] Pulse Oximetry 98 97 98 Oxygen Delivery Method Sepsis Recent Fever Within 48 Hours Sepsis New/Unexplained Change in Mental Status Sepsis Action Taken by Nursing 04/29/22 18:50 04/29/22 19:00 04/29/22 19:10 Temperature Temperature Source Pulse Rate 87 69 76 Pulse Rate [Left Finger] Pulse Rate from SpO2 Sensor 83 69 74 Respiratory Rate 24 21 20 Respiratory Effort / Characteristics Respiratory Depth Blood Pressure Blood Pressure [Left Arm] Blood Pressure Mean Blood Pressure Mean [Left Arm] Pulse Oximetry 97 97 98 Oxygen Delivery Method Sepsis Recent Fever Within 48 Hours Sepsis New/Unexplained Change in Mental Status Sepsis Action Taken by Nursing 04/29/22 19:20 04/29/22 19:30 04/29/22 19:40 Temperature Temperature Source Pulse Rate 73 75 76 Pulse Rate [Left Finger] Pulse Rate from SpO2 Sensor 73 76 76 Respiratory Rate 20 21 17 Respiratory Effort / Characteristics Respiratory Depth Blood Pressure Blood Pressure [Left Arm] Blood Pressure Mean Blood Pressure Mean [Left Arm] Pulse Oximetry 98 98 99 Oxygen Delivery Method Sepsis Recent Fever Within 48 Hours Sepsis New/Unexplained Change in Mental Status Sepsis Action Taken by Nursing 04/29/22 19:50 04/29/22 20:00 04/29/22 20:10 Temperature Temperature Source Pulse Rate 69 74 76 Pulse Rate [Left Finger] Pulse Rate from SpO2 Sensor 70 76 76 Respiratory Rate 17 23 22 Respiratory Effort / Characteristics Respiratory Depth Blood Pressure Blood Pressure [Left Arm] Blood Pressure Mean Blood Pressure Mean [Left Arm] Pulse Oximetry 99 98 99 Oxygen Delivery Method Sepsis Recent Fever Within 48 Hours Sepsis New/Unexplained Change in Mental Status Sepsis Action Taken by Nursing 04/29/22 20:20 04/29/22 20:30 04/29/22 20:40 Temperature Temperature Source Pulse Rate 71 73 76 Pulse Rate [Left Finger] Pulse Rate from SpO2 Sensor 70 73 75 Respiratory Rate 22 17 20 Respiratory Effort / Characteristics Respiratory Depth Blood Pressure Blood Pressure [Left Arm] Blood Pressure Mean Blood Pressure Mean [Left Arm] Pulse Oximetry 98 97 97 Oxygen Delivery Method Sepsis Recent Fever Within 48 Hours Sepsis New/Unexplained Change in Mental Status Sepsis Action Taken by Nursing 04/29/22 20:44 04/29/22 20:44 04/29/22 20:50 Temperature Temperature Source Pulse Rate 69 69 Pulse Rate [Left Finger] Pulse Rate from SpO2 Sensor 69 70 Respiratory Rate 21 16 Respiratory Effort / Characteristics Respiratory Depth Blood Pressure 147/79 H Blood Pressure [Left Arm] Blood Pressure Mean 101 Blood Pressure Mean [Left Arm] Pulse Oximetry 98 98 Oxygen Delivery Method Sepsis Recent Fever Within 48 Hours Sepsis New/Unexplained Change in Mental Status Sepsis Action Taken by Nursing 04/29/22 21:00 04/29/22 21:10 04/29/22 21:22 Temperature Temperature Source Pulse Rate 67 72 Pulse Rate [Left Finger] Pulse Rate from SpO2 Sensor 68 70 Respiratory Rate 18 25 H 17 Respiratory Effort / Characteristics Respiratory Depth Blood Pressure Blood Pressure [Left Arm] Blood Pressure Mean Blood Pressure Mean [Left Arm] Pulse Oximetry 98 98 Oxygen Delivery Method Sepsis Recent Fever Within 48 Hours Sepsis New/Unexplained Change in Mental Status Sepsis Action Taken by Nursing 04/29/22 21:30 04/29/22 21:30 04/29/22 21:40 Temperature Temperature Source Pulse Rate 76 69 Pulse Rate [Left Finger] Pulse Rate from SpO2 Sensor 77 69 Respiratory Rate 18 17 Respiratory Effort / Characteristics Respiratory Depth Blood Pressure 155/79 H Blood Pressure [Left Arm] Blood Pressure Mean 104 Blood Pressure Mean [Left Arm] Pulse Oximetry 98 97 Oxygen Delivery Method Sepsis Recent Fever Within 48 Hours Sepsis New/Unexplained Change in Mental Status Sepsis Action Taken by Nursing 04/29/22 21:50 04/29/22 22:00 04/29/22 22:00 Temperature Temperature Source Pulse Rate 72 70 Pulse Rate [Left Finger] Pulse Rate from SpO2 Sensor 73 70 Respiratory Rate 22 22 Respiratory Effort / Characteristics Respiratory Depth Blood Pressure 146/88 H Blood Pressure [Left Arm] Blood Pressure Mean 107 Blood Pressure Mean [Left Arm] Pulse Oximetry 96 96 Oxygen Delivery Method Sepsis Recent Fever Within 48 Hours Sepsis New/Unexplained Change in Mental Status Sepsis Action Taken by Nursing 04/29/22 22:10 04/29/22 22:20 Temperature Temperature Source Pulse Rate 82 71 Pulse Rate [Left Finger] Pulse Rate from SpO2 Sensor 81 73 Respiratory Rate 18 20 Respiratory Effort / Characteristics Respiratory Depth Blood Pressure Blood Pressure [Left Arm] Blood Pressure Mean Blood Pressure Mean [Left Arm] Pulse Oximetry 98 96 Oxygen Delivery Method Sepsis Recent Fever Within 48 Hours Sepsis New/Unexplained Change in Mental Status Sepsis Action Taken by Nursing General: Well developed well nourished older female who appears mildly in no acute distress, breathing comfortably on room air. Normal speech HEENT: Normal cephalic atraumatic. Pupils are equal round and reactive to light. Extraocular movements are intact. Oropharynx is pink with moist mucous membranes. No swelling of the mouth lips or tongue. Neck: Supple with a midline trachea. No meningeal signs or stiffness, no JVD or bruits. No Stridor. Chest: Clear to auscultation bilaterally. No wheezes or rhonchi. No increased work of breathing. Heart: Regular rate and rhythm with significant tachycardia at around 200 on the monitor Abdomen: Soft nontender, nondistended without rebound guarding or rigidity. Extremities: No cyanosis clubbing or edema. No calf tenderness or assymetry Spine/Back. Non tender to palpation. No CVA tenderness Skin: Good turgor without rashes. Neurologic exam: Cranial nerves two through 12 are intact. Motor and sensation are intact and symmetrical throughout. Procedures Free Text Procedures Start Time: 160204/29/22 Reason: Patient with PMHx of SVT underwent ED Observation for SVT/tachycardia and chest discomfort. Fam Hx: Coronary artery disease in parents and sibling SocHx: See Below Summary: This patient comes in after having SVT she was cardioverted chemically as outlined in the chart. A follow-up EKG shows slow sinus rhythm there were some lateral primarily ST depressions that were subtle her initial troponin was negative she did have some vague chest and neck discomfort while she was having the SVT but that resolved. That was somewhat atypical for her. I did a third EKG a it looks improved compared to the second. her initial troponin is normal however the second 1 was not elevated at 90. Given the bump in her troponin it may be just from the SVT but it is also possible she has underlying coronary disease and I do think needs to be further evaluated in the hospital Dispositionadmission/observation in the hospital 193304/29/22 Total observation time-3 hours and 31 minutes Course Administered Medications Lactated Ringer's (Lr) 1,000 mls @ 75 mls/hr IV .[id number] ONE Stop: 04/30/22 09:10 Last Admin: 04/29/22 20:46 Dose: 75 mls/hr Documented By: [id number] Discontinued Medications Adenosine (Adenosine Iv Soln 3 Mg/Ml 2 Ml Vial) Confirm Administered Dose 6 mg IV .STK-MED ONE Stop: 04/29/22 15:54 Last Admin: 04/29/22 15:59 Dose: 6 mg Documented By: REGINA Apixaban (Apixaban 2.5 Mg Tab) 2.5 mg PO NOW STA Stop: 04/29/22 21:43 Last Admin: 04/29/22 22:27 Dose: 2.5 mg Documented By: [id number] Famotidine (Famotidine 20 Mg Tab) 20 mg PO NOW ONE Stop: 04/29/22 21:43 Last Admin: 04/29/22 22:27 Dose: 20 mg Documented By: [id number] Sodium Chloride (Nss) 500 mls @ 999 mls/hr IV .Q31M STA Stop: 04/29/22 16:33 Last Infusion: 04/29/22 16:58 Dose: 0 mls/hr Documented By: Admin: 04/29/22 15:55 Dose: 999 mls/hr Documented By: [id number] Metoprolol Succinate (Metoprolol Succ 25mg Ext Rel Tab) 12.5 mg PO NOW STA Stop: 04/29/22 21:42 Last Admin: 04/29/22 22:27 Dose: 12.5 mg Documented By: [id number] Potassium Chloride (Potassium Chloride Crtab 20 Meq Tabcr) 20 meq PO NOW STA Stop: 04/29/22 19:38 Last Admin: 04/29/22 20:44 Dose: 20 meq Documented By: [id number] Medical Decision Making Differential Diagnosis SVT, A. fib, acute coronary syndrome, arrhythmia, electrolyte or metabolic abnormality, CHF Medical Records Attestation: I reviewed the patient's medical records. Home Medications Current Medication List: was personally reviewed by me Laboratory Data Attestation: I reviewed the patient's lab results. Result diagrams: 04/29/22 15:55 04/29/22 15:55 Lab Results 04/29/22 04/29/22 04/29/22 Range/Units 15:55 15:55 15:55 WBC 14.31 H (4.8-10.8) K/ul RBC 4.81 (3.93-5.22) M/uL Hgb 15.6 (12.0-16.0) g/dl Hct 45.3 H (34.1-44.9) % MCV 94.2 (80.0-100.0) fL MCH 32.4 (25.0-34.0) pg MCHC 34.4 (32.0-36.0) g/dL RDW Std Deviation 41.3 (36.4-46.3) fL RDW Coeff of Jose J 11.9 (11.5-14.5) % Plt Count 259 (130-400) K/uL MPV 10.5 (9.4-12.3) fL Immature Gran % (Auto) 0.3 % Neut % (Auto) 63.7 % Lymph % (Auto) 26.8 % [place] % (Auto) 8.5 % Eos % (Auto) 0.5 % Baso % (Auto) 0.2 % Neut # (Auto) 9.11 H (1.4-6.5) K/uL Lymph # (Auto) 3.83 H (1.2-3.4) K/uL [place] # (Auto) 1.22 H (0.24-0.82) K/uL Eos # (Auto) 0.07 (0-0.50) K/uL Baso # (Auto) 0.03 (0-0.2) K/uL Immature Gran # (Auto) 0.05 H (0.00-0.02) K/uL PT 10.6 (9.0-12.0) Seconds INR 1.0 (0.9-1.1) APTT 27.7 (21.0-31.0) Seconds PTT Ratio 1.0 Sodium 138 (136-145) mmol/L Potassium 3.9 (3.5-5.1) mmol/L Chloride 103 (98-107) mmol/L Carbon Dioxide 27 (21-32) mmol/L Anion Gap 8 (3-11) BUN 20 (6-23) mg/dl Creatinine 0.92 (0.6-1.2) mg/dl Est Cr Clr Drug Dosing 46.4 ml/min Est GFR ( Amer) 72.6 ml/min Est GFR (Non-Af Amer) 62.6 ml/min BUN/Creatinine Ratio 21.7 H (10-20) Glucose 144 H (70-99(Fasting)) mg/dl Calcium 9.4 (8.5-10.1) mg/dl Magnesium (1.7-2.4) mg/dl Total Bilirubin 0.9 (0.2-1.0) mg/dl AST 54 H (13-39) U/L ALT 57 H (7-52) U/L Alkaline Phosphatase 95 (34-104) U/L Troponin I High Sens 6.1 (0-14) pg/ml Total Protein 7.2 (6.0-8.3) gm/dl Albumin 4.2 (3.4-5.0) gm/dl Globulin 3.0 (2.5-4.0) gm/dl Albumin/Globulin Ratio 1.4 (0.9-2) Lipase 52 (11-82) U/L Procalcitonin (0-0.5) ng/ml TSH (0.300-4.500) uIu/ml Free T4 (0.61-1.60) ng/dl SARS-CoV-2, RNA, NAAT (NEGATIVE) 04/29/22 04/29/22 04/29/22 Range/Units 15:55 15:55 18:10 WBC (4.8-10.8) K/ul RBC (3.93-5.22) M/uL Hgb (12.0-16.0) g/dl Hct (34.1-44.9) % MCV (80.0-100.0) fL MCH (25.0-34.0) pg MCHC (32.0-36.0) g/dL RDW Std Deviation (36.4-46.3) fL RDW Coeff of Jose J (11.5-14.5) % Plt Count (130-400) K/uL MPV (9.4-12.3) fL Immature Gran % (Auto) % Neut % (Auto) % Lymph % (Auto) % [place] % (Auto) % Eos % (Auto) % Baso % (Auto) % Neut # (Auto) (1.4-6.5) K/uL Lymph # (Auto) (1.2-3.4) K/uL [place] # (Auto) (0.24-0.82) K/uL Eos # (Auto) (0-0.50) K/uL Baso # (Auto) (0-0.2) K/uL Immature Gran # (Auto) (0.00-0.02) K/uL PT (9.0-12.0) Seconds INR (0.9-1.1) APTT (21.0-31.0) Seconds PTT Ratio Sodium (136-145) mmol/L Potassium (3.5-5.1) mmol/L Chloride (98-107) mmol/L Carbon Dioxide (21-32) mmol/L Anion Gap (3-11) BUN (6-23) mg/dl Creatinine (0.6-1.2) mg/dl Est Cr Clr Drug Dosing ml/min Est GFR ( Amer) ml/min Est GFR (Non-Af Amer) ml/min BUN/Creatinine Ratio (10-20) Glucose (70-99(Fasting)) mg/dl Calcium (8.5-10.1) mg/dl Magnesium (1.7-2.4) mg/dl Total Bilirubin (0.2-1.0) mg/dl AST (13-39) U/L ALT (7-52) U/L Alkaline Phosphatase (34-104) U/L Troponin I High Sens 92.0 H* D (0-14) pg/ml Total Protein (6.0-8.3) gm/dl Albumin (3.4-5.0) gm/dl Globulin (2.5-4.0) gm/dl Albumin/Globulin Ratio (0.9-2) Lipase (11-82) U/L Procalcitonin < 0.05 (0-0.5) ng/ml TSH 6.102 H (0.300-4.500) uIu/ml Free T4 0.97 (0.61-1.60) ng/dl SARS-CoV-2, RNA, NAAT (NEGATIVE) 04/29/22 04/29/22 Range/Units 18:10 21:37 WBC (4.8-10.8) K/ul RBC (3.93-5.22) M/uL Hgb (12.0-16.0) g/dl Hct (34.1-44.9) % MCV (80.0-100.0) fL MCH (25.0-34.0) pg MCHC (32.0-36.0) g/dL RDW Std Deviation (36.4-46.3) fL RDW Coeff of Jose J (11.5-14.5) % Plt Count (130-400) K/uL MPV (9.4-12.3) fL Immature Gran % (Auto) % Neut % (Auto) % Lymph % (Auto) % [place] % (Auto) % Eos % (Auto) % Baso % (Auto) % Neut # (Auto) (1.4-6.5) K/uL Lymph # (Auto) (1.2-3.4) K/uL [place] # (Auto) (0.24-0.82) K/uL Eos # (Auto) (0-0.50) K/uL Baso # (Auto) (0-0.2) K/uL Immature Gran # (Auto) (0.00-0.02) K/uL PT (9.0-12.0) Seconds INR (0.9-1.1) APTT (21.0-31.0) Seconds PTT Ratio Sodium (136-145) mmol/L Potassium (3.5-5.1) mmol/L Chloride (98-107) mmol/L Carbon Dioxide (21-32) mmol/L Anion Gap (3-11) BUN (6-23) mg/dl Creatinine (0.6-1.2) mg/dl Est Cr Clr Drug Dosing ml/min Est GFR ( Amer) ml/min Est GFR (Non-Af Amer) ml/min BUN/Creatinine Ratio (10-20) Glucose (70-99(Fasting)) mg/dl Calcium (8.5-10.1) mg/dl Magnesium 2.1 (1.7-2.4) mg/dl Total Bilirubin (0.2-1.0) mg/dl AST (13-39) U/L ALT (7-52) U/L Alkaline Phosphatase (34-104) U/L Troponin I High Sens (0-14) pg/ml Total Protein (6.0-8.3) gm/dl Albumin (3.4-5.0) gm/dl Globulin (2.5-4.0) gm/dl Albumin/Globulin Ratio (0.9-2) Lipase (11-82) U/L Procalcitonin (0-0.5) ng/ml TSH (0.300-4.500) uIu/ml Free T4 (0.61-1.60) ng/dl SARS-CoV-2, RNA, NAAT NEGATIVE (NEGATIVE) Imaging Data Attestation: I personally reviewed and interpreted this imaging study as follows: My Impression: Chest x-rayno acute infiltrate, failure, pneumothorax seen Radiologist's Impression: Chest X-Ray 04/29/22 16:03 XR chest 1V portable HISTORY: 72 years-old Female Chest Pain chest pain COMPARISON: Chest radiograph 10/02/2020 TECHNIQUE: AP view of the chest FINDINGS: Cardiac mediastinal and hilar silhouettes are within normal limits. Atherosclerosis of the aorta. No pneumothorax, or overt pleural effusion, airspace consolidation or overt pulmonary edema. Mild blunting of the lateral left costophrenic angle. The bones of the chest appear grossly intact. IMPRESSION: No acute process. ACT 112: Negative or not required by law. The above report was generated using voice recognition software. It may contain grammatical, syntax or spelling errors. Electronically signed by: Simon King M.D. 04/29/2022 4:09 PM ECG Data Attestation: I personally reviewed and interpreted this ECG as follows: Indication: + palpitations Rate (beats per minute): 201 Rhythm: + SVT ECG Intervals/blocks: + Normal QRS and + Normal QT ECG [place]: + Normal ECG ST segments: + Normal ST segments ECG Findings: no PACs or no PVCs Comparison ECG Date: from (10/06/20) Change: the following changes noted (svt has replaced normal sinus) Additional Comments: EKG #2: Normal sinus rhythm rate of 76. LVH. There are some ST depression which is new compared to EKG #1. Not a normal sinus rhythm is now improved from SVT EKG #3: Normal sinus rhythm with a rate of 80 compared to EKG #1 ST segments have improved MDM Narrative This patient comes in as described above. She was put in room B1. The nurses came and got me to see her I saw her promptly she appears to be in SVT, she has a regular narrow complex tachycardia at over 200. I tried vagal maneuvers without any success we did give her adenosine 6 mg IV she did cardiovert I repeated the EKG. Blood works obtained she was given a fluid bolus and a chest x-ray she was further observed. She improved with the adenosine. A follow-up EKG did have some subtle ST depressions her initial troponin is negative given this I did observe her in the ER and a did third EKG and troponin her troponin is now elevated at 96 this may be from the SVT but I cannot rule out underlying ischemia. On her third EKG, it looks significantly better than the second. Given this, I do think she needs to be further admitted/observed. Her COVID test was negative, she has no significant electrolyte or metabolic abnormalities I discussed case with Dr. Dyer who saw in the ER and will admit/observe her for these measures. Continuous cardiac monitoring: Orders placed in EMR for continuous cardiac monitoring. Upon my initial interpretation the patient was noted be in SVT at a rate of over 200. Subsequently she was noted to be in normal sinus rhythm with a rate of 70 Impression & Plan PSVT (paroxysmal supraventricular tachycardia), Elevated troponin I level, ST segment changes on electrocardiogram, Lab test negative for COVID-19 virus Discharge Plan Visit Data Chief Complaint: Tachycardia Stated Complaint: SVT POSSIBLY, HIGH HEART RATE ED Provider: Kieran Colmenares Discharge Problem: PSVT (paroxysmal supraventricular tachycardia), Elevated troponin I level, ST segment changes on electrocardiogram, Lab test negative for COVID-19 virus Forms Stand Alone Forms: My [facility] Prescriptions Prescriptions: No Action metoprolol succinate 25 mg tablet extended release 24 hr 12.5 mg PO DAILY atorvastatin 10 mg tablet 10 mg PO HS multivitamin Tablet 1 tab PO DAILY famotidine [Pepcid] 20 mg Tablet 20 mg PO BID Eliquis 2.5 mg tablet 2.5 mg PO BID Referrals Referrals: Maria A Saab DO [Primary Care Provider] -
--- NOTE | 2022-04-29 16:11 | XRay Report ---
XR chest 1V portable HISTORY: 72 years-old Female Chest Pain chest pain COMPARISON: Chest radiograph 10/02/2020 TECHNIQUE: AP view of the chest FINDINGS: Cardiac mediastinal and hilar silhouettes are within normal limits. Atherosclerosis of the aorta. No pneumothorax, or overt pleural effusion, airspace consolidation or overt pulmonary edema. Mild blunti ng of the lateral left costophrenic angle. The bones of the chest appear grossly intact. IMPRESSION: No acute process. ACT 112: Negative or not required by law. The above report was generated using voice recognition software. It may contain grammatical, syntax o r spelling errors. Electronically signed by: Simon King M.D. 04/29/2022 4:09 PM
[2022-04-29 16:41] LABS: Basophils # (auto) 0.03 K/uL (0-0.2); Basophils % (auto) 0.2 %; Eosinophils # (auto) 0.07 K/uL (0-0.50); Eosinophils % (auto) 0.5 %; Hematocrit (blood only) 45.3 % (34.1-44.9); Hemoglobin 15.6 g/dl (12.0-16.0); Immature Granulocytes # (auto) 0.05 K/uL (0.00-0.02); Immature Granulocytes % (auto) 0.3 %; Lymphocytes # (auto) 3.83 K/uL (1.2-3.4); Lymphocytes % (auto) 26.8 %; Mean Corpuscular Hemoglobin 32.4 pg (25.0-34.0); Mean Corpuscular Hgb Conc 34.4 g/dL (32.0-36.0); Mean Corpuscular Volume 94.2 fL (80.0-100.0); Mean Platelet Volume 10.5 fL (9.4-12.3); Monocytes # (auto) 1.22 K/uL (0.24-0.82); Monocytes % (auto) 8.5 %; Neutrophils # (auto) 9.11 K/uL (1.4-6.5); Neutrophils % (auto) 63.7 %; Platelet Count 259 K/uL (130-400); RDW Coefficient of Variation 11.9 % (11.5-14.5); RDW Standard Deviation 41.3 fL (36.4-46.3); Red Blood Count 4.81 M/uL (3.93-5.22); White Blood Count 14.31 K/ul (4.8-10.8)
[2022-04-29 16:47] LABS: Partial Thromboplastin Time 27.7 Seconds (21.0-31.0); Prothrombin Time 10.6 Seconds (9.0-12.0)
[2022-04-29 17:06] LABS: Troponin I High Sensitivity 6.1 pg/ml (0-14)
[2022-04-29 17:15] LABS: Albumin Globulin Ratio 1.4 (0.9-2); Albumin Level 4.2 gm/dl (3.4-5.0); BUN Creatinine Ratio 21.7 (10-20); Bilirubin,Total 0.9 mg/dl (0.2-1.0); Calcium 9.4 mg/dl (8.5-10.1); Creatinine Clr Calc Pharmacy 46.4 ml/min; Est GFR (African American) 72.6 ml/min; Est GFR (Non-African American) 62.6 ml/min; Potassium 3.9 mmol/L (3.5-5.1); Total Protein 7.2 gm/dl (6.0-8.3)
[2022-04-29] MEDS ORDERED: POTASSIUM CHLORIDE CRTAB 20 MEQ TABCR PO STA (19:37)
--- NOTE | 2022-04-29 19:43 | Electrocardiogram Report ---
Test Reason : Blood Pressure : / mmHG Vent. Rate : 201 BPM Atrial Rate : 093 BPM P-R Int : 000 ms QRS Dur : 076 ms QT Int : 230 ms P-R-T Axes : 000 -03 161 degrees QTc Int : 420 ms Poor data quality, interpretation may be adversely affected Supraventricular tachycardia with frequent Premature ventricular complexes Left ventricular hypertrophy with repolarization abnormality ST segement changes concerning for ischemia Abnormal ECG Confirmed by Arjun Hong ([id number]) on 04/29/2022 7:43:33 PM Referred By: ED Confirmed By:Enrique Hong
--- NOTE | 2022-04-29 19:44 | Electrocardiogram Report ---
Test Reason : Blood Pressure : / mmHG Vent. Rate : 096 BPM Atrial Rate : 096 BPM P-R Int : 106 ms QRS Dur : 066 ms QT Int : 334 ms P-R-T Axes : 039 -04 027 degrees QTc Int : 421 ms Poor data quality, interpretation may be adversely affected Sinus rhythm Minimal voltage criteria for LVH, may be normal variant Nonspecific ST abnormality Abnormal ECG When compared with ECG of 29-APR-2022 15:53, (unconfirmed) Premature ventricular complexes are no longer Present Vent. rate has decreased BY [address] less depressed in Anterior leads T wave inversion no longer evident in Lateral leads Confirmed by Arjun Hong ([id number]) on 04/29/2022 7:44:03 PM Referred By: ED Confirmed By:Enrique Hong
[2022-04-29] MEDS ORDERED: LACTATED RINGER'S 1,000 ML IV ONE (19:51)
--- NOTE | 2022-04-29 19:51 | History & Physical Report ---
Date of Service April 29, 2022 Assessment & Plan (1) Paroxysmal SVT (supraventricular tachycardia): Plan: This is a 70-year-old female with PMH of SVT, hypertension, meningioma, hyperlipidemia and other medical problems as belowwho presents with palpitations and was found to have supraventricular tachycardia on EKG. Initial EKG in ED showing SVT at 200 bpm Did not respond to vagal maneuvers but converted after IV adenosine in ED Repeat EKG showing normal sinus rhythm with some ST changes that improved on 30 EKG showing normal sinus rhythm of 80 bpm Afebrile, leukocytosis of 14 K, electrolytes within normal limits Initial troponin normal but elevated at 92 likely 2/2 arrhythmia and adenosine but will continue to monitor overnight See. Dr. Santacruz's plan for further details. (2) Multiple pulmonary emboli: Plan: On lifelong anticoagulation with Eliquis (3) Hypertension: Plan: Normotensive. Continue Toprol (4) Dyslipidemia: Plan: Continue statin DVT Ppx: Eliquis Code status: FULL PCP: Jerome Dispo: Admitted to PCU Patient seen in collaboration with Dr. Santacruz. Please see addendum. History of Present Illness Chief Complaint: Palpitations Primary Care Provider: Maria A Saab DO This is a 70-year-old female with PMH of SVT, history of DVT/PE on Eliquis, hypertension, meningioma, hyperlipidemia and other medical problems as belowwho presents with palpitations that started earlier this evening. Developed sudden onset of palpitations with associated lightheadedness. Had 1 episode similar to this years ago. Denies any chest pain or shortness of breath. Has felt comfortable since converting to normal sinus rhythm in the ER. Denies any recent illness, fever or chills. No changes to medication. Took Toprol this morning. Denies any headache, chest pain, shortness of breath, wheezing, nausea, vomiting, abdominal pain, dysuria, diarrhea constipation. Is on long-te rm Eliquis for history of multiple PEs. Allergies Allergy/AdvReac Type Severity Reaction Status Date / Time adhesive Allergy Mild Mild Unverified 04/29/22 16:02 Irritation and Redness latex Allergy Mild Mild Unverified 04/29/22 16:02 Irritation and Redness Home Medications Medication Instructions Recorded Confirmed Type atorvastatin 10 mg tablet 10 mg PO HS 10/05/20 04/29/22 History metoprolol succinate 25 mg 12.5 mg PO DAILY 01/20/22 04/29/22 History tablet,extended release 24 hr apixaban 2.5 mg tablet (Eliquis) 2.5 mg PO BID 04/29/22 04/29/22 History famotidine 20 mg tablet (Pepcid) 20 mg PO BID 04/29/22 04/29/22 History multivitamin 1 tab PO DAILY 04/29/22 04/29/22 History Past Med/Surg History Medical History Acute meniscal injury of left knee Asymptomatic menopausal state Dyslipidemia Hypertension Left knee pain Meningioma Multiple pulmonary emboli 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 hand Osteopenia Paroxysmal SVT (supraventricular tachycardia) Right rotator cuff tendonitis Sensorineural hearing loss (SNHL) of left ear with restricted hearing of right ear Tinnitus of left ear Tricompartment osteoarthritis of left knee Surgical History H/O colonoscopy 03/2007, 2016, negative History of tonsillectomy and adenoidectomy S/P section Status post tubal ligation Family History Mother Hypertension Diabetes Brother Diabetes Father Myocardial infarction Sister Coronary heart disease Myocardial infarction Other Heart disease Denies family history of Ovarian cancer Breast cancer Colorectal cancer Social History Smoking Status: Never smoker Second Hand Exposure: No; Do You Dip or Chew Tobacco: No; Hx Alcohol Use: Yes Alcohol type: wine Hx Substance Use: No Preferred Language: Thai Communication Ability: Effective 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 Physical Exam Physical Exam: General Appearance: WD/WN, vitals as above, NAD, sitting up in bed, anxious, conversing easily Head: normocephalic, atraumatic Eyes: normal inspection, PERRL, conjunctivae normal, anicteric sclerae ENT: external ear and nose normal, oropharynx normal Neck: normal visual inspection, trachea midline, no thyromegaly Respiratory: normal respiratory effort, lungs clear to auscultation, no wheeze, rales, rhonchi. No accessory muscle use Cardiovascular: regular rate, rhythm, no murmur, normal peripheral pulses, no BLE edema. Vessels: no JVD Chest: normal inspection of chest Abdomen/GI: normal bowel sounds, soft, nontender, no hepatosplenomegaly Extremities/Musculoskeletal: no cyanosis or clubbing, extremities motor strength 5/5 Neurologic: PERRL, EOMI, accommodation nl, no face palsy, no dysarthria, CN's II-XI intact bilaterally and moves all extremities Psychiatric: A+Ox3, euthymic affect Skin: no rashes, normal color, warm/dry Results & Data Results & Data ([facility]) Vital Signs (Past 12 Hours) Vital Signs Temp Pulse Pulse Resp BP Pulse Ox O2 Del Method 04/29/22 17:30 84 14 125/83 97 Room Air 04/29/22 16:41 96 H 20 116/79 97 Room Air 04/29/22 16:08 92 H 22 156/95 H 97 Room Air 04/29/22 16:03 97 H 18 134/96 97 Room Air 04/29/22 15:45 Room Air 04/29/22 15:40 36.1 C L 207 H 20 98 Room Air Laboratory Results Short CBC 04/29/22 Range/Units 15:55 WBC 14.31 H (4.8-10.8) K/ul Hgb 15.6 (12.0-16.0) g/dl Hct 45.3 H (34.1-44.9) % Plt Count 259 (130-400) K/uL BMP 04/29/22 15:55 Sodium 138 Potassium 3.9 Chloride 103 Carbon Dioxide 27 BUN 20 Creatinine 0.92 Glucose 144 H Calcium 9.4 Liver Function 04/29/22 Range/Units 15:55 Total Bilirubin 0.9 (0.2-1.0) mg/dl AST 54 H (13-39) U/L ALT 57 H (7-52) U/L Alkaline Phosphatase 95 (34-104) U/L Albumin 4.2 (3.4-5.0) gm/dl Diagnostic Findings Chest X-Ray 04/29/22 16:03 XR chest 1V portable HISTORY: 72 years-old Female Chest Pain chest pain COMPARISON: Chest radiograph 10/02/2020 TECHNIQUE: AP view of the chest FINDINGS: Cardiac mediastinal and hilar silhouettes are within normal limits. Atherosclerosis of the aorta. No pneumothorax, or overt pleural effusion, airspace consolidation or overt pulmonary edema. Mild blunting of the lateral left costophrenic angle. The bones of the chest appear grossly intact. IMPRESSION: No acute process. ACT 112: Negative or not required by law. The above report was generated using voice recognition software. It may contain grammatical, syntax or spelling errors. Electronically signed by: Simon King M.D. 04/29/2022 4:09 PM Supervising Physician Co-Signing Physician Notes IM ATTENDING : Patient seen and examined. History obtained from patient and records. Preceding documentation by Ms. Kera Arevalo PA-C reviewed. FINAL ASSESSMENT AND PLAN as follows : Recurrent SVT Patient currently NSR post adenosine administration at the ER Troponin elevation secondary to above History PE DVT on Eliquis subclinical hypothyroidism asymptomatic transaminitis Hyperlipidemia on statin Rx Hyperglycemia rule out DM OBS PCU Increase maintenance beta-quentin dose Follow troponin TTE, Cardiology consult Re: Recurrent SVT Follow LFTs, liver ultrasound if with progression Hold statin for now given transaminitis Recheck TSH next month Check hemoglobin A1c DVT prophylaxis with Eliquis Full code Text document was generated using [employer] voice recognition software. It may contain grammatical or spelling errors. Kindly contact undersigned for clarification of any documentation item in question.
[2022-04-29 21:27] LABS: Thyroid Stimulating Hormone 6.102 uIu/ml (0.300-4.500)
[2022-04-29] MEDS ORDERED: METOPROLOL SUCC 25MG EXT REL TAB PO STA (21:41)
[2022-04-29] MEDS ORDERED: APIXABAN 2.5 MG TAB PO STA (21:42)
[2022-04-29] MEDS ORDERED: FAMOTIDINE 20 MG TAB PO ONE (21:42)
[2022-04-29 22:06] LABS: T4 Free Thyroxine 0.97 ng/dl (0.61-1.60)
[2022-04-30] MEDS ORDERED: traMADol HCL 50 MG TABLET PO PRN (00:04)
[2022-04-30] MEDS ORDERED: NITROGLYCERIN SL 0.4 MG/TAB TAB SL PRN (00:04)
[2022-04-30] MEDS ORDERED: LORazepam 0.5 MG TAB PO PRN (00:04)
[2022-04-30] MEDS ORDERED: PROMETHAZINE HCL 12.5 MG in SODIUM CHLORIDE 0.9% 50 ML IV PRN (00:04)
[2022-04-30] MEDS ORDERED: ACETAMINOPHEN 500 MG TAB PO PRN (00:04)
[2022-04-30 05:29] LABS: Appearance Urine Clear (Clear); Bilirubin Urine Negative (Negative); Blood Urine Negative (Negative); Color Urine Yellow; Glucose Urine UA Negative (Negative); Ketones Urine Negative (Negative); Leukocyte Esterase Urine Negative (Negative); Nitrite Urine Negative (Negative); Protein Urine Negative (Negative); Specific Gravity Urine 1.005 (1.000-1.030); Urobilinogen Urine Negative (Negative); pH Urine 6.5 (4.5-7.5)
[2022-04-30 06:00] LABS: Basophils # (auto) 0.02 K/uL (0-0.2); Basophils % (auto) 0.2 %; Eosinophils # (auto) 0.04 K/uL (0-0.50); Eosinophils % (auto) 0.4 %; Hematocrit (blood only) 41.6 % (34.1-44.9); Hemoglobin 14.1 g/dl (12.0-16.0); Immature Granulocytes # (auto) 0.03 K/uL (0.00-0.02); Immature Granulocytes % (auto) 0.3 %; Lymphocytes # (auto) 2.33 K/uL (1.2-3.4); Lymphocytes % (auto) 25.2 %; Mean Corpuscular Hgb Conc 33.9 g/dL (32.0-36.0); Mean Corpuscular Volume 94.5 fL (80.0-100.0); Mean Platelet Volume 10.1 fL (9.4-12.3); Monocytes # (auto) 0.79 K/uL (0.24-0.82); Monocytes % (auto) 8.6 %; Neutrophils # (auto) 6.02 K/uL (1.4-6.5); Neutrophils % (auto) 65.3 %; Platelet Count 209 K/uL (130-400); RDW Coefficient of Variation 11.9 % (11.5-14.5); RDW Standard Deviation 41.1 fL (36.4-46.3); White Blood Count 9.23 K/ul (4.8-10.8)
[2022-04-30 06:40] LABS: Albumin Globulin Ratio 1.5 (0.9-2); Albumin Level 3.8 gm/dl (3.4-5.0); BUN Creatinine Ratio 16.4 (10-20); Bilirubin,Total 0.9 mg/dl (0.2-1.0); Calcium 9.1 mg/dl (8.5-10.1); Creatinine Clr Calc Pharmacy 66.7 ml/min; Est GFR (Non-African American) 82.9 ml/min; Globulin 2.6 gm/dl (2.5-4.0); Total Protein 6.4 gm/dl (6.0-8.3)
[2022-04-30 08:03] LABS: Estimated Average Glucose 108 mg/dl; Hemoglobin A1C 5.4 % (4.5-5.6)
[2022-04-30] MEDS ORDERED: FAMOTIDINE 20 MG TAB PO SCH (09:00)
[2022-04-30] MEDS ORDERED: MULTIVITAMIN TAB PO SCH (09:00)
[2022-04-30] MEDS ORDERED: METOPROLOL SUCC 25MG EXT REL TAB PO SCH (09:00)
[2022-04-30] MEDS ORDERED: APIXABAN 2.5 MG TAB PO SCH (09:00)
--- NOTE | 2022-04-30 09:18 | Cardiology Consultation ---
Date of Consultation April 30, 2022 Assessment & Plan (1) PSVT (paroxysmal supraventricular tachycardia): (2) Elevated troponin I level: (3) Hypertension: (4) Family history of premature CAD: Plan Patient with recurrent SVT requiring adenosine conversion in the ER. Initial episode in 2016. Increase metoprolol to 25 mg daily. Recommend outpatient EP evaluation to discuss further treatment options for SVT. Possible future ablation. Minimally elevated troponin, likely due to cardiac strain secondary to arrhythmia and HR > 200 for prolonged period of time. Echo without wall motion abnormalities. No anginal symptoms at this time. She did have neck/jaw/right arm discomfort with the SVT. Would recommend outpatient nuclear lexiscan stress testing. Continue Eliquis (due to history of PE) Continue statin Increase metoprolol to 25 mg on discharge. Stable cardiac symptoms for discharge today. Our office will contact patient with nataly for nuclear Lexiscan stress testing and EP appointment Discussed with hospitalist, Dr. Coronel Case to be discussed with Dr. Gross. History of Present Illness Reason for Consultation: Paroxysmal SVT Requesting Physician: Dr. Santacruz Attending Physician: Dr. Gross History of Present Illness Patient is a 72 year old female with history of hypertension, dyslipidemia, and paroxysmal SVT initially diagnosed in 2016 upon presentation to ER with SVT rates around 200 bmp per report, requiring adenosine for conversion to NSR. She was started on metoprolol succinate 25 mg daily at that time. She underwent exercise stress echo in 2017 which was negative for inducible ischemia with preserved LV systolic function and no significant valvular heart disease. She also underwent an outpatient ZIO monitor in 2020 without significant SVT episodes. In 2020, patient reduced her metoprolol to 12.5 mg daily due to lower blood pressure readings. Patient did not follow up with cardiology after this initial SVT event. Patient was in normal state of health yesterday, having traveled to [place] with friends to go shopping, upon returning home, she had a second cup of coffee which is her normal routine. She was sitting in a chair reading when she developed sudden onset palpitations associated with right arm discomfort and neck/throat tightness. She monitor her heart rate with a pulse ox and readings were fluctuating between 180 and 200 beats per minute. Symptoms lasted greater than 20 minutes so she came to the emergency room for evaluation. Upon arrival, EKG demonstrated SVT at 201 bpm. She was treated with IV adenosine and converted to normal sinus rhythm. HS Troponin minimally elevated, peaking at 138 and trending down on repeat this morning. Echo revealed normal LV function, no wall motion abnormalities. Thyroid levels slightly elevated at 6 Patient denies recent chest pain or SOB with activities. Walks for exercise. No changes to her functional capacity. This episode of arm pain/neck/jaw pain was first occurrence. At time of consult, patient is feeling well and anxious for discharge. No recurrent arrhythmias overnight or this morning. Metoprolol was increased to 25 mg daily on admission. She is tolerating this change thus far. No recurrent neck or throat tightness. No chest pain or shortness of breath. No orthopnea, PND, lower extremity edema. No recent illness. No fever, cough, chills. Patient is concerned with extensive family history of premature CAD. Her father had SC age 50's and . Sister with SC age 60's and 1/2 brother with CAD and stents. Allergies Allergy/AdvReac Type Severity Reaction Status Date / Time adhesive Allergy Mild Mild Unverified 04/29/22 16:02 Irritation and Redness latex Allergy Mild Mild Unverified 04/29/22 16:02 Irritation and Redness Home Medications Medication Instructions Recorded Confirmed Type atorvastatin 10 mg tablet 10 mg PO HS 10/05/20 04/29/22 History apixaban 2.5 mg tablet (Eliquis) 2.5 mg PO BID 04/29/22 04/29/22 History famotidine 20 mg tablet (Pepcid) 20 mg PO BID 04/29/22 04/29/22 History multivitamin 1 tab PO DAILY 04/29/22 04/29/22 History metoprolol succinate 25 mg 25 mg PO DAILY 30 days #30 tabs 04/30/22 Rx tablet,extended release 24 hr Patient History Medical History Acute meniscal injury of left knee Asymptomatic menopausal state Dyslipidemia Hypertension Left knee pain Meningioma Multiple pulmonary emboli 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 hand Osteopenia Paroxysmal SVT (supraventricular tachycardia) Right rotator cuff tendonitis Sensorineural hearing loss (SNHL) of left ear with restricted hearing of right ear Tinnitus of left ear Tricompartment osteoarthritis of left knee Surgical History H/O colonoscopy 2016, negative History of tonsillectomy and adenoidectomy S/P section Status post tubal ligation Family History Mother Hypertension Diabetes Brother Diabetes Father Myocardial infarction Sister Coronary heart disease Myocardial infarction Other Heart disease Denies family history of Ovarian cancer Breast cancer Colorectal cancer Social History Smoking Status: Never smoker Second Hand Exposure: No; Do You Dip or Chew Tobacco: No; Hx Alcohol Use: Yes Alcohol type: wine Hx Substance Use: No Preferred Language: Nigerien Communication Ability: Effective Internal Revenue Agent Required: No Beliefs That Will Affect Care: None marital status: Current Living Situation: Spouse Other Information That Helps Us Care for You: No Feels Safe at Home: Yes Safety Concerns: Feels Safe At This Time Assistive Devices: None Review of Systems Review of Systems: All systems reviewed & are unremarkable except as noted in HPI & below Physical Exam Constitutional: WD/WN, vitals as above Neck: trachea midline, no thyromegaly Respiratory: normal respiratory effort; no respiratory distress Auscultation: lungs clear to auscultation bilaterally Cardiovascular: Rate/Rhythm: regular rate and regular rhythm Heart Sounds: no murmur Vessels: no JVD Extremities: no edema Gastrointestinal (Abdomen): normal bowel sounds, soft, nontender, no hepatosplenomegaly Skin: no rashes, warm and dry Neurologic: PERRL, EOMI, accommodation nl, no face palsy, no dysarthria Psychiatric: A+Ox3, euthymic affect Results & Data ([facility]) Vital Signs (Past 12 Hours) Vital Signs Temp Pulse Pulse Resp BP BP Pulse Ox 04/30/22 07:53 04/30/22 07:33 36.6 C 69 19 149/88 H 98 04/30/22 07:26 68 04/30/22 03:23 36.8 C 68 18 135/81 97 04/30/22 00:04 04/30/22 00:12 36.8 C 78 16 184/84 H 98 04/29/22 22:20 71 20 96 04/29/22 22:10 82 18 98 04/29/22 22:00 70 22 96 04/29/22 22:00 146/88 H 04/29/22 21:50 72 22 96 04/29/22 21:40 69 17 97 04/29/22 21:30 76 18 98 04/29/22 21:30 155/79 H 04/29/22 21:22 17 O2 Del Method O2 Del Method 04/30/22 07:53 Room Air 04/30/22 07:33 Room Air 04/30/22 07:26 04/30/22 03:23 Room Air 04/30/22 00:04 Room Air 04/30/22 00:12 Room Air 04/29/22 22:20 04/29/22 22:10 04/29/22 22:00 04/29/22 22:00 04/29/22 21:50 04/29/22 21:40 04/29/22 21:30 04/29/22 21:30 04/29/22 21:22 Laboratory Results Cardiac Enzymes 04/29/22 04/29/22 04/29/22 Range/Units 15:55 18:10 22:44 AST 54 H (13-39) U/L Troponin I High Sens 6.1 92.0 H* D 138.0 H* D (0-14) pg/ml 04/30/22 04/30/22 Range/Units 05:36 05:36 AST 34 (13-39) U/L Troponin I High Sens 98.4 H* D (0-14) pg/ml Coagulation 04/29/22 Range/Units 15:55 PT 10.6 (9.0-12.0) Seconds APTT 27.7 (21.0-31.0) Seconds CBC 04/29/22 04/30/22 Range/Units 15:55 05:36 WBC 14.31 H 9.23 (4.8-10.8) K/ul RBC 4.81 4.40 (3.93-5.22) M/uL Hgb 15.6 14.1 (12.0-16.0) g/dl Hct 45.3 H 41.6 (34.1-44.9) % Plt Count 259 209 (130-400) K/uL Neut # (Auto) 9.11 H 6.02 (1.4-6.5) K/uL Lymph # (Auto) 3.83 H 2.33 (1.2-3.4) K/uL [place] # (Auto) 1.22 H 0.79 (0.24-0.82) K/uL Eos # (Auto) 0.07 0.04 (0-0.50) K/uL Baso # (Auto) 0.03 0.02 (0-0.2) K/uL Comprehensive Metabolic Panel 04/29/22 04/30/22 Range/Units 15:55 05:36 Sodium 138 141 (136-145) mmol/L Potassium 3.9 4.0 (3.5-5.1) mmol/L Chloride 103 108 H (98-107) mmol/L Carbon Dioxide 27 28 (21-32) mmol/L BUN 20 12 (6-23) mg/dl Creatinine 0.92 0.73 (0.6-1.2) mg/dl Glucose 144 H 94 (70-99(Fasting)) mg/dl Calcium 9.4 9.1 (8.5-10.1) mg/dl AST 54 H 34 (13-39) U/L ALT 57 H 56 H (7-52) U/L Alkaline Phosphatase 95 82 (34-104) U/L Total Protein 7.2 6.4 (6.0-8.3) gm/dl Albumin 4.2 3.8 (3.4-5.0) gm/dl Intake and Output 04/29/22 04/30/22 04/30/22 22:59 06:59 14:59 Intake Total 500 / 1157.5 657.5 / 1157.5 364 / 364 Output Total 500 / 500 Balance 500 / 657.5 157.5 / 657.5 364 / 364 Intake: IV 500 / 1007.5 507.5 / 1007.5 364 / 364 Lactated Ringer's 1,000 ml @ 60 507.5 / 507.5 364 / 364 mls/hr IV .[id number] ONE Rx#: [id number] Sodium Chloride 0.9% 500 ml @ 500 / 500 999 mls/hr IV .Q31M STA Rx#: [id number] Oral 150 / 150 Output: Urine 500 / 500 Other: # Unmeasured Voids 1 Weight 58.3 kg 70.9 kg 70.9 kg Weight Measurement Method Chair Scale Standing Scale Patient Weight 05/01/22 06:59 Weight 70.9 kg Diagnostic Findings Echo report reviewed dated 04/29/2022: Compared to prior study, there is no significant change. Ejection fraction 60 to 65%. Mild MR. Trace AI. Grade 1 diastolic dysfunction. EKG on admission reviewed: Supraventricular tachycardia at 201 bpm Repeat EKG on 04/29 reviewed: Normal sinus rhythm Minimal voltage criteria for LVH Prior outpatient records reviewed: echo report reviewed September 2020 Normal LV systolic function is normal. No regional wall motion abnormality. borderline LVh EF 60-65% Mild TR RV systolic pressure is normal. Outpatient ZIO monitor report reviewed dated September 2020: CONCLUSIONS: A Zio patch XT monitor was worn for 6 days and 19 hours ranging from 10/02/2020 until 10/09/2020 for the evaluation of dyspnea. Patient had a min HR of 49 bpm, max HR of 144 bpm, and avg HR of 75 bpm. Predominant underlying rhythm was Sinus Rhythm. 4 Supraventricular Tachycardia runs occurred, the run with the fastest interval lasting 7 beats with a max rate of 144 bpm, the longest lasting 8 beats with an avg rate of 130 bpm. Isolated SVEs were rare (<1.0%, 144), SVE Couplets were rare (<1.0%, 13), and no SVE Triplets were present. Isolated VEs were rare (<1.0%), and no VE Couplets or VE Triplets were present. There was a single patient triggered event and 2 diary events. The diary entries included symptoms of " shortness of breath, pounding, climbing stairs" and correlated with sinus rhythm at 97 beats per minute in sinus rhythm 86 beats per minute. A patient triggered event correlated with sinus tachycardia 103 beats per minute. Conclusion : No significant arrhythmia observed Exercise stress echo report reviewed dated Jun 2017: The examination is adequate to evaluate the referral indication. The stress echo is negative for inducible ischemia. Exercise capacity is above average . Blood pressure response to exercise was normal. The left ventricular cavity size is normal. The LV wall thickness is normal. The left ventricular wall motion is normal. Qualitative LV ejection Fraction = 55%. The left ventricular diastolic function is mildly abnormal (grade I). Medications Administered Current Inpatient Medications Acetaminophen (Acetaminophen 500 Mg Tab) 500 mg PO Q6H PRN PRN Reason: pain/fever Stop: 05/30/22 00:03 Apixaban (Apixaban 2.5 Mg Tab) 2.5 mg PO BID PAULIE Stop: 05/30/22 08:59 Last Admin: 04/30/22 07:49 Dose: 2.5 mg Famotidine (Famotidine 20 Mg Tab) 20 mg PO BID PAULIE Stop: 05/30/22 08:59 Last Admin: 04/30/22 07:49 Dose: 20 mg Lactated Ringer's (Lr) 1,000 mls @ 60 mls/hr IV .[id number] ONE Stop: 04/30/22 12:30 Last Infusion: 04/30/22 09:36 Dose: 0 mls/hr Promethazine HCl 12.5 mg/ (Sodium Chloride) 50.5 mls @ 202 mls/hr IV Q6H PRN PRN Reason: Nausea And Vomiting Stop: 05/30/22 00:03 Lorazepam (Lorazepam 0.5 Mg Tab) 0.25 mg PO TID PRN PRN Reason: Anxiety Stop: 05/30/22 00:03 Metoprolol Succinate (Metoprolol Succ 25mg Ext Rel Tab) 25 mg PO DAILY PAULIE Stop: 05/30/22 08:59 Last Admin: 04/30/22 07:50 Dose: 25 mg Multivitamins (Multivitamin Tab) 1 tab PO DAILY PAULIE Stop: 05/30/22 08:59 Last Admin: 04/30/22 07:49 Dose: 1 tab Nitroglycerin (Nitroglycerin Sl 0.4 Mg/Tab Tab) 0.4 mg SL Q5M PRN PRN Reason: Chest Pain Stop: 05/30/22 00:03 Tramadol HCl (Tramadol Hcl 50 Mg Tablet) 25 - 50 mg PO Q4H PRN PRN Reason: Pain Stop: 05/30/22 00:03
--- NOTE | 2022-04-30 12:58 | Electrocardiogram Report ---
Test Reason : Blood Pressure : / mmHG Vent. Rate : 080 BPM Atrial Rate : 080 BPM P-R Int : 144 ms QRS Dur : 070 ms QT Int : 364 ms P-R-T Axes : 050 -13 023 degrees QTc Int : 419 ms Normal sinus rhythm Minimal voltage criteria for LVH, may be normal variant Borderline ECG When compared with ECG of 29-APR-2022 16:01, No significant change was found Confirmed by Arjun Hong ([id number]) on 04/30/2022 12:57:51 PM Referred By: REFERRED SELF Confirmed By:Enrique Hong
== END 2022-04-30 11:38 | disposition home or self-care (01) ==
LOC: ED 15:40 → 4W 15:40